=== PATIENT | female | born 2000 | race African-American/Black ===

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

== ENCOUNTER 2018-03-17 17:17 | Emergency (ER) | payer MEDICAID ==
[2018-03-17 17:56] LABS: APPEARANCE,URINE CLEAR; BILIRUBIN,URINE NEGATIVE (NEGATIVE); COLOR,URINE YELLOW; GLUCOSE, URINE NEGATIVE (NEGATIVE); KETONES,URINE NEGATIVE (NEGATIVE); LEUKOCYTE ESTERASE,URINE NEGATIVE (NEGATIVE); NITRITE,URINE NEGATIVE (NEGATIVE); PROTEIN,URINE NEGATIVE (NEGATIVE); URINE SPECIFIC GRAVITY 1.014; UROBILINOGEN,URINE NEGATIVE mg/dL (<2.0)
--- NOTE | 2018-03-17 20:23 | RADIOLOGY REPORT (SQ) ---
EXAM DESCRIPTION: U/S OB TRANSVAGINAL W/O DOP COMPLETED DATE/TIME: 03/17/2018 8:07 pm REASON FOR STUDY: 8 weeks , bleeding COMPARISON: None. TECHNIQUE: Transvaginal static and realtime grayscale images acquired of the pelvis. Additional benjamín cted spectral and color Doppler images recorded. All images stored on PACs. bHCG: Not available. CLINICAL DATES: LMP 01/21/2018. 7 weeks 6 days. LIMITATIONS: None. FINDINGS: FETUS: Living intrauterine . ULTRASOUND EGA: 5 weeks 6 days ULTRASOUND SHERRILL: 11/11/2018 CRL: 3 mm FHR: 125 beats per minute. SUBCHORIONIC BLEED: Yes SIZE OF BLEED: Small UTERUS: No masses or anomalies. 7.3 x 3.5 x 4.5 cm. CERVICAL LENGTH: 3.7 cm. Closed. RIGHT ADNEXA: Normal ovary with normal vascular flow. 3.1 x 1.7 x 1.8 cm No adnexal free fluid. No adnexal masses. LEFT ADNEXA: Normal ovary with normal vascular flow. 3.1 x 1.3 x 1.2 cm No adnexal free fluid. No adnexal masses. FREE FLUID: Small amount of free fluid in the posterior cul-de-sac. OTHER: No other significant finding. IMPRESSION: LIVING INTRAUTERINE . EGA 5 weeks 6 days. Small subchorionic bleed. Follow-up as clinically indicated. Trimester of : First - 0 to 13 weeks. TECHNICAL DOCUMENTATION: JOB ID: [id number] [employer]- All Rights Reserved rev-01/22 Reading location - IP/workstation name: [email or web address]
--- NOTE | 2018-03-17 22:12 | ER Document Report ---
ED General - General Chief Complaint: Vag Bleeding, +preg <12wks Stated Complaint: VAGINAL BLEEDING Time Seen by Provider: 03/17/18 18:30 TRAVEL OUTSIDE OF THE [place] IN LAST 30 DAYS: No - HPI Patient complains to provider of: Vaginal bleeding positive Notes: Patient is a coming in for vaginal bleeding. Patient states to have sexual intercourse approximately 3 days ago. Patient otherwise denies anything inside the vaginal vault denies any trauma or strenuous activity. Patient states some slight cramping with dark brown blood. Patient says she has not been taking any vitamins and otherwise did see room is healthcare just for confirmation of with test. Patient denies any other medical issues resting company upon my evaluation. - Related Data Allergies/Adverse Reactions: No Known Allergies Allergy (Verified 04/08/17 14:14) Past Medical History - Social History Smoking Status: Never Smoker Chew tobacco use (# tins/day): No Frequency of alcohol use: None Drug Abuse: None Family History: Reviewed & Not Pertinent Patient has suicidal ideation: No Patient has homicidal ideation: No - Past Medical History Cardiac Medical History: Denies: Hx Coronary Artery Disease, Hx Heart Attack, Hx Hypertension Pulmonary Medical History: Denies: Hx Asthma, Hx Bronchitis, Hx COPD, Hx Pneumonia Neurological Medical History: Denies: Hx Cerebrovascular Accident, Hx Seizures Renal/ Medical History: Denies: Hx Peritoneal Dialysis Musculoskeltal Medical History: Denies Hx Arthritis Past Surgical History: Denies: Hx Hysterectomy - Immunizations Immunizations up to date: Yes Hx Diphtheria, Pertussis, Tetanus Vaccination: Yes Review of Systems - Review of Systems Constitutional: No symptoms reported EENT: No symptoms reported Cardiovascular: No symptoms reported Respiratory: No symptoms reported Gastrointestinal: No symptoms reported Genitourinary: No symptoms reported Female Genitourinary: Vaginal bleeding Musculoskeletal: No symptoms reported Skin: No symptoms reported Hematologic/Lymphatic: No symptoms reported Neurological/Psychological: No symptoms reported -: Yes All other systems reviewed and negative Physical Exam - Vital signs Vitals: Temp Pulse Resp BP Pulse Ox 97.8 F 76 18 109/63 100 03/17/18 17:32 03/17/18 17:32 03/17/18 17:32 03/17/18 17:32 03/17/18 17:32 Interpretation: Normal - General General appearance: Appears well, Alert - HEENT Head: Normocephalic, Atraumatic Eyes: Normal Pupils: PERRL - Respiratory Respiratory status: No respiratory distress Chest status: Nontender Breath sounds: Normal Chest palpation: Normal - Cardiovascular Rhythm: Regular Heart sounds: Normal auscultation Murmur: No - Abdominal Inspection: Normal Distension: No distension Bowel sounds: Normal Tenderness: Nontender Organomegaly: No organomegaly - Back Back: Normal, Nontender - Extremities General upper extremity: Normal inspection, Nontender, Normal color, Normal ROM , Normal temperature General lower extremity: Normal inspection, Nontender, Normal color, Normal ROM , Normal temperature, Normal weight bearing. No: Ketan's sign - Neurological Neuro grossly intact: Yes Cognition: Normal Orientation: AAOx4 [place] Coma Scale Eye Opening: Spontaneous Jonelle Coma Scale Verbal: Oriented Jonelle Coma Scale Motor: Obeys Commands Jonelle Coma Scale Total: 15 Speech: Normal Motor strength normal: LUE, RUE, LLE, RLE Sensory: Normal - Psychological Associated symptoms: Normal affect, Normal mood - Skin Skin Temperature: Warm Skin Moisture: Dry Skin Color: Normal Course - Re-evaluation Re-evalutation: 03/18/18 00:50 Patient's beta-hCG was around 11,000 with a ultrasound showing IUP is some mild subchorionic bleed. Long discussion with patient at bedside she would have an increased risk of having a miscarriage however she is follow-up for repeat beta hCG testing the next 4872 hours. Patient was given a lab slip to return here to the ER for outpatient laboratory testing or recommend follow-up moves all care clinic. After I placed patient's papers of her discharge was called back to the ramus patient was having some slight cramping. Did perform a bedside ultrasound showing IUP still in the correct position. I do further answer more questions of the patient had follow-up. Explained to patient that still a good chance patient may be having a miscarriage in this time with her the gestation at 5 weeks that there will be no measures taken to keep the gestation viable. I did leave the room and later again was notified by nursing staff the patient had vaginal bleeding while she is try to get dressed with a large amount of blood on the floor with a large clot. Patient was requesting my presence again. I did remain in the room there was paper towels in the floor with blood stain patient states that there was a large clot within the blood asked if I want to look at the blood clot explained to patient that even at a 5 week gestation patient still had a microscopic organism is likely looking of the clot would not be able to tell there is any tissue or not reeducated the patient that still at this time there be no further measures to be taken to keep the viable that she will either continue to have a normal healthy or that she may miscarriage and no further measures could be taken except for rest and to repeat her beta-hCG levels and 40-72 hours. Patient states understanding was given nausea medication and information about nausea medication for home. - Vital Signs Vital signs: Temp Pulse Resp BP Pulse Ox 98.7 F 79 14 102/55 L 99 03/17/18 23:33 03/17/18 23:33 03/17/18 23:33 03/17/18 23:33 03/17/18 23:33 - Laboratory Laboratory results interpreted by me: 03/17/18 03/17/18 17:25 20:27 Beta HCG, Quant 15850.00 H Urine Blood LARGE H Discharge - Discharge Clinical Impression: Vaginal bleeding before 22 weeks gestation Condition: Good Disposition: HOME, SELF-CARE Instructions: Bleeding During Early ([facility]) Additional Instructions: I recommend following up with ADDICTION THERAPIST in the next 3-5 days. You will need to have your beta hCG levels retested in the next 48-72 hours. He can follow-up with your ADDICTION THERAPIST for this or use the lab slip to return to outpatient laboratory to have this performed. After having a blood drawn you can call the ER number for your results to 3 hours after having her blood drawn. Return to the ER for any other concerns. Take vitamins as prescribed Take nausea medication as prescribed You have been seen for vomiting during . You should continue to drink plenty of water and consider taking a solution such as Pedialyte if your having difficulty eating food. Please return if you become unable to drink any fluids for more than 12 hours, urinate less than twice a day, pass out, or have any other symptoms that are concerning to you. For nausea and vomiting during I recomment: Start with 10-12.5 mg of pyridoxine (vitamin B6) three times a day for 2 days. If not fully effective, Increase to 12.5 mg of pyridoxine four times a day for 2 days. If not fully effective, Increase to 25 mg of pyridoxine three times a day for 2 days. If not fully effective, Continue 25 mg pyridoxine 3 times a day, and add 12.5 mg of doxylamine before bedtime each day for 2 days. If not fully effective, Continue 25 mg pyridoxine 3 times a day, and take 12.5 mg of doxylamine twice a day. If not fully effective, Continue 25 mg pyridoxine 3 times a day, and take 12.5 mg of doxylamine three times a day. If not fully effective, Continue 25 mg pyridoxine 3 times a day, and 12.5 mg of doxylamine 3 times a day , while adding Emetrol, one to two tablespoons (15-30 cc) taken once or twice a day as needed. (Emetrol is an fbra-akd-wmasdjd mixture of sugar syrups and phosphoric acid [phosphorylated carbohydrate solution]) that acts by soothing the actual wall of the gastrointestinal tract). If not fully effective, Consult with your doctor. Prescriptions: Metoclopramide HCl [Reglan] 5 mg PO Q6 #30 tablet Prenat 115/Iron Fum/Folic/Dss [ 19 Tablet] 1 each PO DAILY #30 tablet Forms: Return to Work, Follow-Up Outpatient Testing Referrals: ARUN GARCIA MD [Primary Care Provider] - Follow up in 3-5 days
[2018-03-18 00:37] VITALS: BP 102/55
== END 2018-03-17 23:40 | disposition home or self-care (01) ==
LOC: ER 17:17
DX: O20.9 Hemorrhage in early pregnancy, unspecified (principal); Z3A.01 Less than 8 weeks gestation of pregnancy
CPT/HCPCS: 36415; 76817; 81001; 84702; 86900; 86901; 99284

== ENCOUNTER 2018-04-26 07:20 | Emergency (ER) | payer MEDICAID ==
--- NOTE | 2018-04-26 09:23 | ER Document Report ---
ED Medical Screen (RME) - General Mode of Arrival: Ambulatory Information source: Patient TRAVEL OUTSIDE OF THE [place] IN LAST 30 DAYS: No <GUICHO FRANCOIS - Last Filed: 04/26/18 09:21> <JAILENE RAMIREZ - Last Filed: 04/26/18 13:03> - General Chief Complaint: Abdominal Pain Stated Complaint: ABDOMINAL PAIN Time Seen by Provider: 04/26/18 09:19 Notes: This is a 18-year-old female with a history of GERD who presents to the emergency room with sharp pain in the suprapubic region. Patient states that the pain started yesterday. There is been no exacerbating or relieving factors. She denies vaginal discharge. She denies dysuria. Her last normal menstrual period was 1 week ago. She does state she has "hot flashes". There is no back pain or flank pain. There is no vomiting but that she does have nausea. Her obstetric history is 1 para 0 with a history of a miscarriage in the early first trimester. (GUICHO FRANCOIS) - Related Data Allergies/Adverse Reactions: No Known Allergies Allergy (Verified 04/26/18 09:18) Past Medical History - Social History Chew tobacco use (# tins/day): No Frequency of alcohol use: None Drug Abuse: None - Past Medical History Cardiac Medical History: Denies: Hx Coronary Artery Disease, Hx Heart Attack, Hx Hypertension Pulmonary Medical History: Denies: Hx Asthma, Hx Bronchitis, Hx COPD, Hx Pneumonia Neurological Medical History: Denies: Hx Cerebrovascular Accident, Hx Seizures Renal/ Medical History: Denies: Hx Peritoneal Dialysis GI Medical History: Reports: Hx Gastroesophageal Reflux Disease Musculoskeltal Medical History: Denies Hx Arthritis Past Surgical History: Denies: Hx Hysterectomy - Immunizations Immunizations up to date: Yes Hx Diphtheria, Pertussis, Tetanus Vaccination: Yes <GUICHO FRANCOIS - Last Filed: 04/26/18 09:21> - Vital signs Vitals: Temp Pulse Resp BP Pulse Ox 98.6 F 74 14 114/68 100 04/26/18 07:27 04/26/18 07:27 04/26/18 07:27 04/26/18 07:27 04/26/18 07:27 Course - Laboratory Result Diagrams: 04/26/18 08:50 04/26/18 08:50 <JAILENE RAMIREZ - Last Filed: 04/26/18 13:03> - Vital Signs Vital signs: Temp Pulse Resp BP Pulse Ox 98.6 F 74 14 114/68 100 04/26/18 07:27 04/26/18 07:27 04/26/18 07:27 04/26/18 07:27 04/26/18 07:27 - Laboratory Laboratory results interpreted by me: 04/26/18 04/26/18 08:50 08:50 Total Bilirubin 1.5 H AST 44 H Total Protein 8.5 H Ur Leukocyte Esterase TRACE H Doctor's Discharge <GUICHO FRANCOIS - Last Filed: 04/26/18 09:21> <JAILENE RAMIREZ - Last Filed: 04/26/18 13:03> - Discharge Clinical Impression: Abdominal pain Qualifiers: Abdominal location: unspecified location Qualified Code(s): R10.9 - Unspecified abdominal pain Condition: Good Disposition: HOME, SELF-CARE Instructions: Abdominal Pain ([facility]), Bulk Laxatives Prescriptions: Polyethylene Glycol 3350 [Miralax Powder 17 gm/Packet] 1 packet PO BID 7 Days # 1 pkg Referrals: ARUN GARCIA MD [ACTIVE STAFF] - Follow up as needed
[2018-04-26 09:29] LABS: ABSOLUTE BASOPHILS # (AUTO) 0.1 10^3/uL (0.0-0.2); ABSOLUTE EOSINOPHILS # (AUTO) 0.1 10^3/uL (0.0-0.6); ABSOLUTE LYMPHOCYTES (AUTO) 1.8 10^3/uL (0.5-4.7); ABSOLUTE MONOCYTES (AUTO) 0.4 10^3/uL (0.1-1.4); ABSOLUTE NEUT (AUTO) 2.4 10^3/uL (1.7-8.2); BASOPHILS % (AUTO) 1.2 % (0-2); HEMATOCRIT 44.4 % (36.0-47.0); HEMOGLOBIN 15.5 g/dL (12.0-15.5); LYMPHOCYTES % (AUTO) 38.3 % (13-45); MEAN CORPUSCULAR HEMOGLOBIN 33.2 pg (27.0-33.4); MEAN CORPUSCULAR HGB CONC 34.9 g/dL (32.0-36.0); MEAN CORPUSCULAR VOLUME 95 fl (80-97); MONOCYTES % (AUTO) 7.5 % (3-13); PLATELET COUNT 197 10^3/uL (150-450); RED BLOOD COUNT 4.66 10^6/uL (3.72-5.28); RED CELL DISTRIBUTION WIDTH 12.7 % (11.5-14.0); TOTAL CELLS COUNTED % (AUTO) 100 %; WHITE BLOOD COUNT 4.8 10^3/uL (4.0-10.5)
[2018-04-26 09:33] LABS: ALANINE AMINOTRANSFERASE 43 U/L (9-52); ALBUMIN 4.7 g/dL (3.5-5.0); ALKALINE PHOSPHATASE 58 U/L (38-126); ANION GAP 14 (5-19); ASPARTATE AMINO TRANSFERASE 44 U/L (14-36); BILIRUBIN,DIRECT 0.4 mg/dL (0.0-0.4); BILIRUBIN,TOTAL 1.5 mg/dL (0.2-1.3); BLOOD UREA NITROGEN 12 mg/dL (7-20); CALCIUM 9.7 mg/dL (8.4-10.2); CARBON DIOXIDE 26 mmol/L (22-30); CHLORIDE 104 mmol/L (98-107); GLUCOSE 97 mg/dL (75-110); LIPASE 52.6 U/L (23-300); POTASSIUM 4.2 mmol/L (3.6-5.0); SODIUM 143.6 mmol/L (137-145); TOTAL PROTEIN 8.5 g/dL (6.3-8.2)
[2018-04-26 10:06] LABS: APPEARANCE,URINE SLIGHTLY-CLOUDY; BILIRUBIN,URINE NEGATIVE (NEGATIVE); COLOR,URINE YELLOW; GLUCOSE, URINE NEGATIVE (NEGATIVE); KETONES,URINE NEGATIVE (NEGATIVE); LEUKOCYTE ESTERASE,URINE TRACE (NEGATIVE); NITRITE,URINE NEGATIVE (NEGATIVE); PROTEIN,URINE NEGATIVE (NEGATIVE); URINE SPECIFIC GRAVITY 1.011; UROBILINOGEN,URINE NEGATIVE mg/dL (<2.0)
--- NOTE | 2018-04-26 12:19 | RADIOLOGY REPORT (SQ) ---
EXAM DESCRIPTION: U/S NON OB PEL TV W/DOPPLER COMPLETED DATE/TIME: 04/26/2018 11:41 am REASON FOR STUDY: pain in pelvis LMP 04/17/2018 COMPARISON: None. TECHNIQUE: Dynamic and static grayscale images acquired of the pelvis via transvaginal approach and recorded on PACS. Additional selected color Doppler and spectral images recorded. LIMITATIONS: None. FINDINGS: UTERUS: Contour normal. No mass. ENDOMETRIAL STRIPE: No focal or generalized thickening. No masses. CERVIX: No nabothian cysts. RIGHT OVARY AND DOPPLER: Normal size. No worrisome masses. Normal arterial vascular flow without evid ence for torsion. LEFT OVARY AND DOPPLER: Normal size. No worrisome masses. Normal arterial vascular flow without evide nce for torsion. FREE FLUID: None noted. OTHER: No other significant finding. MEASUREMENTS: UTERUS: 6.7 x 4 x 3.1 cm. ENDOMETRIAL STRIPE: 8 mm. RIGHT OVARY: 2.4 x 2 x 1.5 cm. LEFT OVARY: 2.8 x 1.6 x 1.8 cm. IMPRESSION: NORMAL TRANSVAGINAL PELVIC ULTRASOUND. TECHNICAL DOCUMENTATION: JOB ID: [id number] [employer]- All Rights Reserved Rev-01/22 Reading location - IP/workstation name: [email or web address]
--- NOTE | 2018-04-26 13:09 | ER Document Report ---
ED GI/ - General Chief Complaint: Abdominal Pain Stated Complaint: ABDOMINAL PAIN Time Seen by Provider: 04/26/18 09:19 Mode of Arrival: Ambulatory Information source: Patient TRAVEL OUTSIDE OF THE [place] IN LAST 30 DAYS: No - HPI Patient complains to provider of: Other - 18-year-old female presents for evaluation of lower cramping abdominal pain which began today, she notes that she had a faint sense of it yesterday after eating some ribs today seem to be a little bit worse, she denies any nausea diarrhea or dysuria associated with this she does note that she has not had a bowel movement since yesterday and has had some issues with constipation in the past. She denies any pelvic pain or pelvic discharge, recent change in sexual partners, she denies any past surgical history, she denies any other complaints. She has never had anything like this in the past, nothing to make it any better not has made any worse. - Related Data Allergies/Adverse Reactions: No Known Allergies Allergy (Verified 04/26/18 09:18) Past Medical History - General Information source: Patient - Social History Smoking Status: Never Smoker Chew tobacco use (# tins/day): No Frequency of alcohol use: None Drug Abuse: None Family History: Reviewed & Not Pertinent Patient has suicidal ideation: No Patient has homicidal ideation: No - Past Medical History Cardiac Medical History: Denies: Hx Coronary Artery Disease, Hx Heart Attack, Hx Hypertension Pulmonary Medical History: Denies: Hx Asthma, Hx Bronchitis, Hx COPD, Hx Pneumonia Neurological Medical History: Denies: Hx Cerebrovascular Accident, Hx Seizures Renal/ Medical History: Denies: Hx Peritoneal Dialysis GI Medical History: Reports: Hx Gastroesophageal Reflux Disease Musculoskeletal Medical History: Denies Hx Arthritis Past Surgical History: Denies: Hx Hysterectomy - Immunizations Immunizations up to date: Yes Hx Diphtheria, Pertussis, Tetanus Vaccination: Yes Review of Systems - Review of Systems -: Yes All other systems reviewed and negative Physical Exam - Vital signs Vitals: Temp Pulse Resp BP Pulse Ox 98.6 F 74 14 114/68 100 04/26/18 07:27 04/26/18 07:27 04/26/18 07:27 04/26/18 07:27 04/26/18 07:27 - General General appearance: Appears well In distress: None - HEENT Head: Normocephalic Eyes: Normal Conjunctiva: Normal Cornea: Normal - Respiratory Respiratory status: No respiratory distress Chest status: Nontender Breath sounds: Normal Chest palpation: Normal - Cardiovascular Rhythm: Regular Heart sounds: Normal auscultation Murmur: No - Abdominal Inspection: Normal Distension: No distension Tenderness: Tender - Diffuse tenderness in the lower aspect of the abdomen without any appreciable rebound or guarding Organomegaly: No organomegaly - Back Back: Normal - Extremities General upper extremity: Normal inspection General lower extremity: Normal inspection - Neurological Neuro grossly intact: Yes Cognition: Normal Orientation: AAOx4 - Psychological Associated symptoms: Normal affect Course - Re-evaluation Re-evalutation: 04/26/18 18:50 This 18-year-old female presents for evaluation of vague lower abdominal pain in the setting of having eaten recently, she denies any other symptoms. On examination she is remarkably well-appearing in no obvious distress, through triage she had labs ordered as well as urinalysis. She has had vague abdominal pains in the past but never exactly like this which have been attributed previously to constipation. her abdominal exam is reassuring and benign but because of the concern for possible pelvic etiology will obtain pelvic ultrasound. Pelvic ultrasound does not demonstrate any obvious abnormality, urinalysis reassuring CBC and BMP are unremarkable. Believe this patient safe for discharge at this time as her abdominal examination remains benign. We will plan for discharge after p.o. challenge, able tolerate p.o., patient discharged encouraged to follow-up as previous schedule. - Vital Signs Vital signs: Temp Pulse Resp BP Pulse Ox 98.5 F 66 16 107/64 97 04/26/18 13:41 04/26/18 13:41 04/26/18 13:41 04/26/18 13:41 04/26/18 13:41 - Laboratory Result Diagrams: 04/26/18 08:50 04/26/18 08:50 Laboratory results interpreted by me: 04/26/18 04/26/18 08:50 08:50 Total Bilirubin 1.5 H AST 44 H Total Protein 8.5 H Ur Leukocyte Esterase TRACE H Discharge - Discharge Clinical Impression: Abdominal pain Qualifiers: Abdominal location: unspecified location Qualified Code(s): R10.9 - Unspecified abdominal pain Condition: Good Disposition: HOME, SELF-CARE Instructions: Abdominal Pain ([facility]), Bulk Laxatives Prescriptions: Polyethylene Glycol 3350 [Miralax Powder 17 gm/Packet] 1 packet PO BID 7 Days # 1 pkg Referrals: ARUN GARCIA MD [ACTIVE STAFF] - Follow up as needed
[2018-04-26 13:43] VITALS: BP 107/64
== END 2018-04-26 13:43 | disposition home or self-care (01) ==
LOC: ER 07:20
DX: R10.30 Lower abdominal pain, unspecified (principal); Z87.19 Personal history of other diseases of the digestive system
CPT/HCPCS: 36415; 76830; 80053; 81001; 81025; 83690; 85025; 93976; 99284

== ENCOUNTER → 2018-05-05 | Outpatient (CLI) | payer MEDICAID ==
[2018-05-05 17:54] LABS: BACTERIA (WET MOUNT) 3+ BACTERIA SEEN; EPITHELIALS (WET MOUNT) 3+ EPITHELIALS SEEN; RBCS (WET MOUNT) RARE RBCS SEEN; T.VAGINALIS (WET MOUNT) NO TRICHOMONAS SEEN; WBCS (WET MOUNT) 3+ WBCS SEEN; YEAST (WET MOUNT) NO YEAST SEEN
[2018-05-05 19:28] LABS: CHLAM PCR NOT DETECTED (NOT DETECT); GON PCR NOT DETECTED (NOT DETECT)
== END ==
LOC: LAB 17:35
PROVIDERS: ATTEND Nurse Practitioner Family
DX: N89.8 Other specified noninflammatory disorders of vagina (principal); R30.0 Dysuria
CPT/HCPCS: 87086; 87210; 87491; 87591

== ENCOUNTER → 2018-06-09 | Outpatient (CLI) | payer MEDICAID | LOC: LAB 11:14 | PROVIDERS: ATTEND Nurse Practitioner Acute Care | DX: M54.5 Low back pain (principal) | CPT/HCPCS: 87086 ==

== ENCOUNTER 2018-07-14 16:02 | Emergency (ER) | payer MEDICAID ==
[2018-07-14 16:10] VITALS: BP 104/69
--- NOTE | 2018-07-14 16:34 | ER Document Report ---
ED General - General Chief Complaint: Vomiting Stated Complaint: SORE THROAT,VOMITING Time Seen by Provider: 07/14/18 16:23 Mode of Arrival: Ambulatory Information source: Patient Notes: Chief complaint: Sore throat History of complain:( obtained from----patient) 18 years old female who is 18 weeks presents today with tickle in the throat and pain in the throat as well as coughing and vomited couple of times. Has been nauseous since being . No abdominal pain. No fever chills or other constitutional symptoms Onset: As above Duration: Gradual Severity: Mild Quality: Pain Context: Possible infection Exacerbating factor and relieving factors: Talking REVIEW OF SYSTEMS: CONSTITUTIONAL : Denies fever, chills, or sweats. Denies recent illness. EENT: Denies eye, ear, throat, or mouth pain or symptoms. Denies nasal or sinus congestion or discharge. Denies throat, tongue, or mouth swelling or difficulty swallowing. CARDIOVASCULAR: Denies chest pain. Denies palpitations or racing or irregular heart beat. Denies ankle edema. RESPIRATORY: Denies cough, cold, or chest congestion. Denies shortness of breath, difficulty breathing, or wheezing. GASTROINTESTINAL: Denies distention. Denies nausea, vomiting, or diarrhea. Denies blood in vomitus, stools, or per rectum. Denies black, tarry stools. Denies constipation. GENITOURINARY: Denies difficulty urinating, painful urination, burning, frequency, blood in urine, or discharge. FEMALE GENITOURINARY: Denies vaginal bleeding, heavy or abnormal periods, irregular periods. Denies vaginal discharge or odor. MUSCULOSKELETAL: Denies back or neck pain or stiffness. Denies joint pain or swelling. SKIN: Denies rash, lesions or sores. HEMATOLOGIC : Denies easy bruising or bleeding. LYMPHATIC: Denies swollen, enlarged glands. NEUROLOGICAL: Denies confusion or altered mental status. Denies passing out or loss of consciousness. Denies dizziness or lightheadedness. Denies headache. Denies weakness or paralysis or loss of use of either side. Denies problems with gait or speech. Denies sensory loss, numbness, or tingling. Denies seizures. PSYCHIATRIC: Denies anxiety or stress. Denies depression, suicidal ideation, or homicidal ideation. ALL OTHER SYSTEMS REVIEWED AND NEGATIVE. PHYSICAL EXAMINATION: GENERAL: Well-appearing, well-nourished and in no acute distress. HEAD: Atraumatic, normocephalic. EYES: Pupils equal round and reactive to light, extraocular movements intact, conjunctiva are normal. ENT: Nares patent, oropharynx is erythematous without exudates. Moist mucous membranes. NECK: Normal range of motion, supple without lymphadenopathy LUNGS: Breath sounds clear to auscultation bilaterally and equal. No wheezes rales or rhonchi. HEART: Regular rate and rhythm without murmurs ABDOMEN: Soft, nontender, nondistended abdomen. No guarding, no rebound. No masses appreciated. Examination of genitals-deferred Musculoskeletal: Normal range of motion, no pitting or edema. No cyanosis. NEUROLOGICAL: Cranial nerves grossly intact. Normal speech, normal gait. Normal sensory, motor exams PSYCH: Normal mood, normal affect. SKIN: Warm, Dry, normal turgor, no rashes or lesions noted. Dictation was performed using [employer] voice recognition software TRAVEL OUTSIDE OF THE [place] IN LAST 30 DAYS: No - HPI Notes: Dictated - Related Data Allergies/Adverse Reactions: No Known Allergies Allergy (Verified 07/14/18 16:03) Past Medical History - Social History Smoking Status: Never Smoker Frequency of alcohol use: None Drug Abuse: None Family History: Reviewed & Not Pertinent Patient has suicidal ideation: No Patient has homicidal ideation: No - Past Medical History Cardiac Medical History: Denies: Hx Coronary Artery Disease, Hx Heart Attack, Hx Hypertension Pulmonary Medical History: Denies: Hx Asthma, Hx Bronchitis, Hx COPD, Hx Pneumonia Neurological Medical History: Denies: Hx Cerebrovascular Accident, Hx Seizures Renal/ Medical History: Denies: Hx Peritoneal Dialysis GI Medical History: Reports: Hx Gastroesophageal Reflux Disease Musculoskeletal Medical History: Denies Hx Arthritis Past Surgical History: Denies: Hx Hysterectomy - Immunizations Immunizations up to date: Yes Hx Diphtheria, Pertussis, Tetanus Vaccination: Yes Review of Systems - Review of Systems Notes: Dictated Physical Exam - Vital signs Vitals: Temp Pulse Resp BP Pulse Ox 98.6 F 86 18 104/69 99 07/14/18 16:10 07/14/18 16:10 07/14/18 16:10 07/14/18 16:10 07/14/18 16:10 - Notes Notes: Dictated Course - Vital Signs Vital signs: Temp Pulse Resp BP Pulse Ox 98.6 F 86 18 104/69 99 07/14/18 16:10 07/14/18 16:10 07/14/18 16:10 07/14/18 16:10 07/14/18 16:10 Discharge - Discharge Clinical Impression: Sore throat and laryngitis, Nausea Qualifiers: Weeks of gestation: less than 8 weeks Qualified Code(s): Z3A.01 - Less than 8 weeks gestation of Condition: Fair Disposition: HOME, SELF-CARE Instructions: Sore Throat ([facility]), ([facility]), Nausea or Vomiting, Nonspecific ([facility]) Prescriptions: Ondansetron [Zofran Odt 4 mg Tablet] 1 - 2 tab PO Q4HP PRN #10 tab.rapdis PRN Reason: Amoxicillin 1 tab PO TID #30 tab Referrals: KIRK EDMOND, [employer]PERVISOR [Primary Care Provider] - Follow up as needed
== END 2018-07-14 17:20 | disposition home or self-care (01) ==
LOC: ER 16:02
DX: O99.511 Diseases of the respiratory system complicating pregnancy, first trimester (principal); J02.9 Acute pharyngitis, unspecified; J04.0 Acute laryngitis; O21.9 Vomiting of pregnancy, unspecified; O26.891 Other specified pregnancy related conditions, first trimester; R05 Cough; Z3A.01 Less than 8 weeks gestation of pregnancy
CPT/HCPCS: 87070; 87880; 99284

== ENCOUNTER 2018-11-13 17:09 | Emergency (ER) | payer MEDICAID ==
--- NOTE | 2018-11-13 18:09 | ER Document Report ---
ED Medical Screen (RME) - General Chief Complaint: Cold Symptoms Stated Complaint: FLU SYMPTOMS Time Seen by Provider: 11/13/18 18:03 Primary Care Provider: YAMILKA VINES MD [Primary Care Provider] - Follow up as needed Mode of Arrival: Ambulatory Information source: Patient Notes: Pt is a 18 year old female 29 weeks , with runny nose, itchy throat and headache, chills and lower abdominal pains bilaterally and a burning sensation, denies burning with urination, vaginal bleeding. TRAVEL OUTSIDE OF THE [place] IN LAST 30 DAYS: No - Related Data Allergies/Adverse Reactions: No Known Allergies Allergy (Verified 07/14/18 16:03) Past Medical History - General Information source: Patient - Past Medical History Cardiac Medical History: Denies: Hx Coronary Artery Disease, Hx Heart Attack, Hx Hypertension Pulmonary Medical History: Denies: Hx Asthma, Hx Bronchitis, Hx COPD, Hx Pneumonia Neurological Medical History: Denies: Hx Cerebrovascular Accident, Hx Seizures Renal/ Medical History: Denies: Hx Peritoneal Dialysis GI Medical History: Reports: Hx Gastroesophageal Reflux Disease Musculoskeltal Medical History: Denies Hx Arthritis Past Surgical History: Denies: Hx Hysterectomy - Immunizations Immunizations up to date: Yes Hx Diphtheria, Pertussis, Tetanus Vaccination: Yes Review of Systems - Review of Systems EENT: See HPI Genitourinary: See HPI Physical Exam - Vital signs Vitals: Temp Pulse Resp BP Pulse Ox 99.7 F 119 H 16 105/65 100 11/13/18 17:18 11/13/18 17:18 11/13/18 17:18 11/13/18 17:18 11/13/18 17:18 - Notes Notes: general: nad ENT: mildly erythematous oropharynx, no tonsilar enlargement, no exudate, airway patent Course - Vital Signs Vital signs: Temp Pulse Resp BP Pulse Ox 99.7 F 119 H 16 105/65 100 11/13/18 17:18 11/13/18 17:18 11/13/18 17:18 11/13/18 17:18 11/13/18 17:18 Doctor's Discharge - Discharge Referrals: YAMILKA VINES MD [Primary Care Provider] - Follow up as needed
[2018-11-13 18:23] LABS: APPEARANCE,URINE SLIGHTLY-CLOUDY; BILIRUBIN,URINE NEGATIVE (NEGATIVE); COLOR,URINE YELLOW; GLUCOSE, URINE NEGATIVE (NEGATIVE); KETONES,URINE 80 mg/dL (NEGATIVE); LEUKOCYTE ESTERASE,URINE TRACE (NEGATIVE); NITRITE,URINE NEGATIVE (NEGATIVE); PROTEIN,URINE NEGATIVE (NEGATIVE); URINE SPECIFIC GRAVITY 1.009; UROBILINOGEN,URINE NEGATIVE mg/dL (<2.0)
[2018-11-13 18:49] LABS: A TYPE INFLUENZA AG NEGATIVE (NEGATIVE); B INFLUENZA AG NEGATIVE (NEGATIVE)
[2018-11-13] MEDS ORDERED: ACETAMINOPHEN 325 MG TABLET PO ONE (19:09)
[2018-11-13] MEDS ORDERED: NORMAL SALINE 1000 ML 1,000 ML IV ONE (19:09)
--- NOTE | 2018-11-13 19:10 | ER Document Report ---
HPI - HPI Time Seen by Provider: 11/13/18 18:03 Onset: Yesterday Onset/Duration: Gradual Quality of pain: Achy Pain Level: 3 Context: Patient presents complaining of cold symptoms including headache, body aches sore throat and congestion. Patient states sore throat symptoms started yesterday. Patient reports mild cough that started today. Patient is 29 weeks . Patient does report lower pelvic cramping for the past 3-4 days. Patient states she did see her DIGITAL PRODUCT MANAGER for the pelvic pain and they felt that this was related to the enlarging . Patient denies any urinary symptoms, vaginal bleeding or discharge. Associated Symptoms: Nonproductive cough, Rhinnorhea, Sore throat. denies: Chest pain, Fever, Nausea Exacerbated by: Denies Relieved by: Denies Similar symptoms previously: Yes - Pelvic pain Recently seen / treated by doctor: Yes - ROS ROS below otherwise negative: Yes Systems Reviewed and Negative: Yes All other systems reviewed and negative - CONSTITUTIONAL Constitutional: REPORTS: Chills - EENT EENT: REPORTS: Sore Throat, Congestion - NEURO Neurology: REPORTS: Headache - CARDIOVASCULAR Cardiovascular: DENIES: Chest pain - RESPIRATORY Respiratory: REPORTS: Coughing. DENIES: Trouble Breathing - GASTROINTESTINAL Gastrointestinal: REPORTS: Abdominal Pain. 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 Lives with: Spouse/Significant other Family History: Reviewed & Not Pertinent Patient has suicidal ideation: No Patient has homicidal ideation: No Renal/ Medical History: Denies: Hx Peritoneal Dialysis GI Medical History: Reports: Hx Gastroesophageal Reflux Disease Musculoskeletal Medical History: Denies Hx Arthritis Surgical Hx: Negative - Immunizations Immunizations up to date: Yes Hx Diphtheria, Pertussis, Tetanus Vaccination: Yes Vertical Provider Document - CONSTITUTIONAL Agree With Documented VS: Yes Exam Limitations: No Limitations General Appearance: WD/WN, No Apparent Distress - INFECTION CONTROL TRAVEL OUTSIDE OF THE [place] IN LAST 30 DAYS: No - HEENT HEENT: Atraumatic, Normocephalic, Pharyngeal Tenderness, Pharyngeal Erythema. negative: Pharyngeal Exudate, Tympanic Membrane Red, Tympanic Membrane Bulging - NECK Neck: Normal Inspection, Supple. negative: Lymphadenopathy-Left, Lymphadenopathy-Right - RESPIRATORY Respiratory: Breath Sounds Normal, No Respiratory Distress, Chest Non-Tender - CARDIOVASCULAR Cardiovascular: Regular Rhythm, No Murmur, Tachycardia - GI/ABDOMEN Gastrointestinal: Abdomen Soft, Abdomen Tender - Lower pelvic tenderness, No Organomegaly, Normal Bowel Sounds - BACK Back: Normal Inspection. negative: CVA Tenderness-Right, CVA Tenderness-Left - MUSCULOSKELETAL/EXTREMETIES Musculoskeletal/Extremeties: MAEW, FROM, Non-Tender - NEURO Level of Consciousness: Awake, Alert, Appropriate Motor/Sensory: No Motor Deficit - DERM Integumentary: Warm, Dry, No Rash Course - Re-evaluation Re-evalutation: 11/13/18 20:50 IV fluids infusing. Patient states she is feeling better. Patient denies any abdominal tenderness. Patient with some leukocyte esterase noted on urinalysis. Culture is pending. Will cover with antibiotics for short course at this time. Patient educated on importance of staying hydrated. 11/13/18 20:[address] Washington who is on-call for D[employer]NAGER services to determine whether or not she felt patient was still need to go for labor check as patient does not presently have any kind of lower pelvic pain symptoms. States that we can offer patient a labor check but that she does not have to have that. Does advised that if patient goes home and she has any return of her pelvic pain symptoms that she should return for a labor check. Spoke with patient and gave her the option to be discharged from the ER without a labor check or if she would like to go upstairs for labor check and patient prefers to be discharged home. Patient states that she will return for labor check if she has a return of her pelvic pain symptoms. - Vital Signs Vital signs: Temp Pulse Resp BP Pulse Ox 99.7 F 119 H 16 105/65 100 11/13/18 17:18 11/13/18 17:18 11/13/18 17:18 11/13/18 17:18 11/13/18 17:18 - Laboratory Laboratory results interpreted by me: 11/13/18 18:08 Urine Ketones 80 H Ur Leukocyte Esterase TRACE H 11/13/18 20:51 Labs- Entire Visit 11/13/18 11/13/18 11/13/18 18:08 18:08 20:00 Urine Color YELLOW Urine Appearance SLIGHTLY-CLOUDY Urine pH 6.0 Ur Specific [place] 1.009 Urine Protein NEGATIVE Urine Glucose (UA) NEGATIVE Urine Ketones 80 H Urine Blood NEGATIVE Urine Nitrite NEGATIVE Urine Bilirubin NEGATIVE Urine Urobilinogen NEGATIVE Ur Leukocyte Esterase TRACE H Urine WBC (Auto) 2 Urine RBC (Auto) 1 Urine Bacteria (Auto) TRACE Squamous Epi Cells Auto 9 Urine Mucus (Auto) RARE Urine Ascorbic Acid NEGATIVE Influenza A (Rapid) NEGATIVE Influenza B (Rapid) NEGATIVE Group A Strep Rapid NEGATIVE Discharge - Discharge Clinical Impression: Sore throat Pelvic pain affecting Qualifiers: Trimester: third trimester Qualified Code(s): O26.893 - Other specified related conditions, third trimester UTI (urinary tract infection) Qualifiers: Urinary tract infection type: site unspecified Hematuria presence: without hematuria Qualified Code(s): N39.0 - Urinary tract infection, site not specified Condition: Stable Disposition: HOME, SELF-CARE Instructions: Cephalexin ([facility]), Pelvic Pain in ([facility]), Sore Throat ([facility]), Urinary Tract Infection ([facility]) Additional Instructions: Return immediately for any new or worsening symptoms Followup with your primary care provider, call tomorrow to make a followup appointment Increase oral fluids and stay well-hydrated Urine culture is pending, we will call if you need any different treatment Prescriptions: Cephalexin Monohydrate [Keflex 500 mg Capsule] 500 mg PO BID 5 Days capsule Forms: Return to Work Referrals: YAMILKA VINES MD [Primary Care Provider] - 11/15/18
[2018-11-13] MEDS ORDERED: CEPHALEXIN 500 MG CAPSULE PO ONE (20:51)
[2018-11-13 21:23] VITALS: BP 106/68
== END 2018-11-13 21:37 | disposition home or self-care (01) ==
LOC: ER 17:09
DX: O99.513 Diseases of the respiratory system complicating pregnancy, third trimester (principal); J02.9 Acute pharyngitis, unspecified; J34.89 Other specified disorders of nose and nasal sinuses; O23.43 Unspecified infection of urinary tract in pregnancy, third trimester; O26.893 Other specified pregnancy related conditions, third trimester; R10.2 Pelvic and perineal pain; R51 Headache; R05 Cough; R68.83 Chills (without fever); Z3A.29 29 weeks gestation of pregnancy
CPT/HCPCS: 99283; 96360; 87070; 87086; 87880; 81001; 87804; J3490; J7030

== ENCOUNTER 2018-11-14 21:02 | Emergency (ER) | payer MEDICAID ==
[2018-11-14 21:37] LABS: APPEARANCE,URINE CLOUDY; BILIRUBIN,URINE NEGATIVE (NEGATIVE); COLOR,URINE YELLOW; GLUCOSE, URINE NEGATIVE (NEGATIVE); KETONES,URINE TRACE mg/dL (NEGATIVE); LEUKOCYTE ESTERASE,URINE MODERATE (NEGATIVE); NITRITE,URINE NEGATIVE (NEGATIVE); PROTEIN,URINE NEGATIVE (NEGATIVE); URINE SPECIFIC GRAVITY 1.005; UROBILINOGEN,URINE NEGATIVE mg/dL (<2.0)
[2018-11-14] MEDS ORDERED: PROMETHAZINE HCL INJ 25 MG/1 ML VIAL IV ONE (22:47)
[2018-11-14] MEDS ORDERED: RINGERS SOLUTION,LACTATED 1,000 ML IV ONE (22:48)
--- NOTE | 2018-11-14 22:50 | ER Document Report ---
ED Medical Screen (RME) - General Chief Complaint: Nausea/Vomiting Stated Complaint: VOMITING BLOOD Time Seen by Provider: 11/14/18 22:40 Primary Care Provider: YAMILKA VINES MD [Primary Care Provider] - Follow up as needed Notes: Patient is a 18-year-old female currently 29 weeks gravid presents to the emergency department for vomiting and vaginal discharge. Patient states she was seen at this facility yesterday diagnosed with a urinary tract infection and given antibiotics. Patient states she took the antibiotics this afternoon took a nap and then when she woke up she vomited multiple times. Patient states she noted red specks in her vomit and she thought it may be blood. Patient states she also started with vaginal discharge today. Patient states she has some generalized lower abdominal cramping which was relieved with IV hydration yesterday. GENERAL: Alert, interacts well. No acute distress. ABDOMEN: Soft, obviously gravid. Non-distended. Bowel sounds present in all 4 quadrants. Nontender I have greeted and performed a rapid initial assessment of this patient. A comprehensive ED assessment and evaluation of the patient, analysis of test results and completion of the medical decision making process will be conducted by additional ED providers. TRAVEL OUTSIDE OF THE [place] IN LAST 30 DAYS: No - Related Data Allergies/Adverse Reactions: No Known Allergies Allergy (Verified 07/14/18 16:03) Past Medical History - Past Medical History Cardiac Medical History: Denies: Hx Coronary Artery Disease, Hx Heart Attack, Hx Hypertension Pulmonary Medical History: Denies: Hx Asthma, Hx Bronchitis, Hx COPD, Hx Pneumonia Neurological Medical History: Denies: Hx Cerebrovascular Accident, Hx Seizures Renal/ Medical History: Denies: Hx Peritoneal Dialysis GI Medical History: Reports: Hx Gastroesophageal Reflux Disease Musculoskeltal Medical History: Denies Hx Arthritis Past Surgical History: Denies: Hx Hysterectomy - Immunizations Immunizations up to date: Yes Hx Diphtheria, Pertussis, Tetanus Vaccination: Yes Physical Exam - Vital signs Vitals: Temp Pulse Resp BP Pulse Ox 98.1 F 94 19 107/65 96 11/14/18 21:14 11/14/18 21:14 11/14/18 21:14 11/14/18 21:14 11/14/18 21:14 Course - Vital Signs Vital signs: Temp Pulse Resp BP Pulse Ox 98.1 F 94 19 107/65 96 11/14/18 21:14 11/14/18 21:14 11/14/18 21:14 11/14/18 21:14 11/14/18 21:14 - Laboratory Laboratory results interpreted by me: 11/14/18 21:20 Urine Ketones TRACE H Ur Leukocyte Esterase MODERATE H Doctor's Discharge - Discharge Referrals: YAMILKA VINES MD [Primary Care Provider] - Follow up as needed
[2018-11-14 23:44] LABS: ABSOLUTE MONOCYTES (AUTO) 0.4 10^3/uL (0.1-1.4); ABSOLUTE NEUT (AUTO) 2.8 10^3/uL (1.7-8.2); BASOPHILS % (AUTO) 0.4 % (0-2); EOSINOPHILS % (AUTO) 0.8 % (0-6); HEMATOCRIT 37.7 % (36.0-47.0); HEMOGLOBIN 13.1 g/dL (12.0-15.5); LYMPHOCYTES % (AUTO) 23.9 % (13-45); MEAN CORPUSCULAR HEMOGLOBIN 33.4 pg (27.0-33.4); MEAN CORPUSCULAR HGB CONC 34.8 g/dL (32.0-36.0); MEAN CORPUSCULAR VOLUME 96 fl (80-97); MONOCYTES % (AUTO) 9.8 % (3-13); PLATELET COUNT 163 10^3/uL (150-450); RED BLOOD COUNT 3.92 10^6/uL (3.72-5.28); RED CELL DISTRIBUTION WIDTH 14.1 % (11.5-14.0); SEGMENTED NEUTROPHILS % (AUTO) 65.1 % (42-78); TOTAL CELLS COUNTED % (AUTO) 100 %; WHITE BLOOD COUNT 4.3 10^3/uL (4.0-10.5)
[2018-11-15 00:13] LABS: ALANINE AMINOTRANSFERASE 35 U/L (9-52); ALBUMIN 3.6 g/dL (3.5-5.0); ALKALINE PHOSPHATASE 177 U/L (38-126); ANION GAP 7 (5-19); ASPARTATE AMINO TRANSFERASE 55 U/L (14-36); BILIRUBIN,DIRECT 0.2 mg/dL (0.0-0.4); BLOOD UREA NITROGEN 5 mg/dL (7-20); CALCIUM 8.7 mg/dL (8.4-10.2); CARBON DIOXIDE 25 mmol/L (22-30); CHLORIDE 102 mmol/L (98-107); GLUCOSE 71 mg/dL (75-110); POTASSIUM 3.5 mmol/L (3.6-5.0); SODIUM 134.2 mmol/L (137-145); TOTAL PROTEIN 6.8 g/dL (6.3-8.2)
--- NOTE | 2018-11-15 02:10 | ER Document Report ---
ED General - General Chief Complaint: Nausea/Vomiting Stated Complaint: VOMITING BLOOD Time Seen by Provider: 11/14/18 22:40 Primary Care Provider: YAMILKA VINES MD [Primary Care Provider] - Follow up as needed Notes: Patient is a 18-year-old female currently 29 weeks , no chronic medical problems who presents with 2 days of nausea and vomiting. Was seen in the emergency department yesterday, diagnosed with urinary tract infection. States that she returned because she continued to vomit today and noticed small flecks of blood in the vomitus. She states that since receiving treatment here in the emergency department she has been able to keep fluids down and feels much better. Nothing seems to worsen her symptoms. Has had similar symptoms during this . Continues to feel active movement. No vaginal bleeding or heavy vaginal discharge. Has been taking antibiotics as prescribed. Has not yet followed up with her INTERVENTION TEACHER regarding today's concerns. TRAVEL OUTSIDE OF THE [place] IN LAST 30 DAYS: No - Related Data Allergies/Adverse Reactions: No Known Allergies Allergy (Verified 07/14/18 16:03) Past Medical History - General Information source: Patient - Social History Smoking Status: Never Smoker Frequency of alcohol use: None Drug Abuse: None Lives with: Spouse/Significant other Family History: Reviewed & Not Pertinent Patient has suicidal ideation: No Patient has homicidal ideation: No - Past Medical History Cardiac Medical History: Denies: Hx Coronary Artery Disease, Hx Heart Attack, Hx Hypertension Pulmonary Medical History: Denies: Hx Asthma, Hx Bronchitis, Hx COPD, Hx Pneumonia Neurological Medical History: Denies: Hx Cerebrovascular Accident, Hx Seizures Renal/ Medical History: Denies: Hx Peritoneal Dialysis GI Medical History: Reports: Hx Gastroesophageal Reflux Disease Musculoskeletal Medical History: Denies Hx Arthritis Past Surgical History: Denies: Hx Hysterectomy - Immunizations Immunizations up to date: Yes Hx Diphtheria, Pertussis, Tetanus Vaccination: Yes Review of Systems - Review of Systems Notes: Constitutional: Negative for fever. HENT: Negative for sore throat. Eyes: Negative for visual changes. Cardiovascular: Negative for chest pain. Respiratory: Negative for shortness of breath. Gastrointestinal: Negative for abdominal pain, positive for nausea and vomiting Genitourinary: Negative for dysuria. Musculoskeletal: Negative for back pain. Skin: Negative for rash. Neurological: Negative for headaches, weakness or numbness. 10 point ROS negative except as marked above and in HPI. Physical Exam - Vital signs Vitals: Temp Pulse Resp BP Pulse Ox 98.1 F 94 19 107/65 96 11/14/18 21:14 11/14/18 21:14 11/14/18 21:14 11/14/18 21:14 11/14/18 21:14 Interpretation: Normal Notes: PHYSICAL EXAMINATION: GENERAL: Well-appearing, well-nourished and in no acute distress. HEAD: Atraumatic, normocephalic. EYES: Pupils equal round and reactive to light, extraocular movements intact, sclera anicteric, conjunctiva are normal. ENT: nares patent, oropharynx clear without exudates. Moist mucous membranes. NECK: Normal range of motion, supple without lymphadenopathy LUNGS: Breath sounds clear to auscultation bilaterally and equal. No wheezes rales or rhonchi. HEART: Regular rate and rhythm without murmurs ABDOMEN: Soft, gravid uterus, nontender, normoactive bowel sounds. No guarding, no rebound. No masses appreciated. EXTREMITIES: Normal range of motion, no pitting or edema. No cyanosis. NEUROLOGICAL: No focal neurological deficits. Moves all extremities spontaneously and on command. PSYCH: Normal mood, normal affect. SKIN: Warm, Dry, normal turgor, no rashes or lesions noted. Course - Re-evaluation Re-evalutation: 11/15/18 02:08 Patient presents with persistent vomiting during . Vitals at time of arrival unremarkable without tachycardia or hypotension. Laboratories reveal a normal creatinine and no evidence of significant dehydration. Patient did have small flecks of blood in her vomitus which was what she was very concerned about. No large volume hematemesis. Patient was able to tolerate oral intake here in the emergency department. IV fluids were provided. Bedside ultrasound shows appropriate heart rate for gestational age with active movement. No vaginal bleeding or discharge. Based on abdominal exam, vitals and history I do not suspect an acute appendicitis, cholestasis of , acute cholecystitis, pancreatitis, or bowel obstruction. At this time will discharge with return precautions and follow-up recommendations. Verbal discharge instructions given a the bedside and opportunity for questions given. Medication warnings reviewed. Patient is in agreement with this plan and has verbalized understanding of return precautions and the need for primary care follow-up in the next 24-72 hours. - Vital Signs Vital signs: Temp Pulse Resp BP Pulse Ox 98.1 F 94 19 107/65 96 11/14/18 21:14 11/14/18 21:14 11/14/18 21:14 11/14/18 21:14 11/14/18 21:14 - Laboratory Result Diagrams: 11/14/18 23:20 11/14/18 23:20 Laboratory results interpreted by me: 11/14/18 11/14/18 11/14/18 21:20 23:20 23:20 RDW 14.1 H Sodium 134.2 L Potassium 3.5 L BUN 5 L Glucose 71 L AST 55 H Alkaline Phosphatase 177 H Urine Ketones TRACE H Ur Leukocyte Esterase MODERATE H Discharge - Discharge Clinical Impression: Third trimester Nausea and vomiting Qualifiers: Vomiting type: unspecified Vomiting Intractability: non-intractable Qualified Code(s): R11.2 - Nausea with vomiting, unspecified Condition: Good Disposition: HOME, SELF-CARE Additional Instructions: You have been seen for vomiting during . You should continue to drink plenty of water and consider taking a solution such as Pedialyte if your having difficulty eating food. Please return if you become unable to drink any fluids for more than 12 hours, urinate less than twice a day, pass out, or have any other symptoms that are concerning to you. Referrals: YAMILKA VINES MD [Primary Care Provider] - Follow up as needed
[2018-11-15 02:25] VITALS: BP 101/56
== END 2018-11-15 02:25 | disposition home or self-care (01) ==
LOC: ER 21:02
DX: O21.2 Late vomiting of pregnancy (principal); Z3A.29 29 weeks gestation of pregnancy
CPT/HCPCS: 99284; 96361; 96374; 36415; 87086; 85025; 80053; 81001; J2550; J7120

== ENCOUNTER 2018-12-11 09:11 | Outpatient (CLI) | payer MEDICAID ==
[2018-12-11 10:35] LABS: APPEARANCE,URINE SLIGHTLY-CLOUDY; BILIRUBIN,URINE NEGATIVE (NEGATIVE); COLOR,URINE YELLOW; GLUCOSE, URINE NEGATIVE (NEGATIVE); KETONES,URINE NEGATIVE (NEGATIVE); LEUKOCYTE ESTERASE,URINE SMALL (NEGATIVE); NITRITE,URINE NEGATIVE (NEGATIVE); PROTEIN,URINE NEGATIVE (NEGATIVE); URINE SPECIFIC GRAVITY 1.005; UROBILINOGEN,URINE NEGATIVE mg/dL (<2.0)
[2018-12-11 10:56] LABS: URINE AMPHETAMINES SCREEN NEGATIVE; URINE BARBITURATES SCREEN NEGATIVE; URINE BENZODIAZEPINES SCREEN NEGATIVE; URINE COCAINE SCREEN NEGATIVE; URINE MARIJUANA (THC) SCREEN NEGATIVE; URINE METHADONE SCREEN NEGATIVE; URINE PHENCYCLIDINE SCREEN NEGATIVE
--- NOTE | 2018-12-11 18:21 | Non Stress Test Report ---
Non Stress Test Datetime Report Generated by CPN: 12/11/2018 18:21 DEMOGRAPHIC EGA NST: 33.3 INDICATION Indication for Study: Ordered by Provider VITAL SIGNS Temperature - NST: 97.6 RESP - NST: 16 NBPSYS NST: 96 NBPDIA NST: 59 MONITORING Monitor Explained: Monitor Explained; Test Explained; Patient Verbalized Understanding; Other Time on Monitor: 12/11/2018 09:35 Time off Monitor: 12/11/2018 10:00 NST Duration: 25 NST INTERVENTIONS NST Interventions: PO Hydration Physician Notified NST: Dr Reji BABY A: [id number] BABY A Movement : Present Contraction Frequency : 3-12 FHR Baseline : 135 Accelerations : 15X15 Decelerations : None Variability : Moderate 6-25bpm NST Review: Meets Criteria for Reactive NST NST Review and Verified By : Gregory Arzola RN NST Results: Reactive NST REPORT Report Trigger: Send Report
== END 2018-12-11 11:30 | disposition home or self-care (01) ==
LOC: LC 09:11
PROVIDERS: ATTEND Obstetrics & Gynecology
PROC: 4A1HXCZ Monitoring of Products of Conception, Cardiac Rate, External Approach (ICD-10-PCS; principal; 2018-12-11)
DX: O26.893 Other specified pregnancy related conditions, third trimester (principal); R10.9 Unspecified abdominal pain; Z3A.33 33 weeks gestation of pregnancy
CPT/HCPCS: 59025; 80307; 81001

== ENCOUNTER 2019-01-27 16:21 | Inpatient (IN) | payer MEDICAID ==
[2019-01-27] MEDS ORDERED: RINGERS SOLUTION,LACTATED 300 ML IV ONE (16:41)
[2019-01-27] MEDS ORDERED: RINGERS SOLUTION,LACTATED 1,000 ML IV PRN (16:41)
[2019-01-27] MEDS ORDERED: HYDROXYZINE PAMOATE 50 MG CAPSULE PO PRN (17:10)
--- NOTE | 2019-01-27 17:18 | Admission Physical ---
Datetime Report Generated by CPN: 01/27/2019 17:18 CURRENT ADMISSION Chief Complaint: Sent from OB Office for Evaluation and Treatment - Please Specify Indication for Induction: Oligohydramnios Admit Impression : Term, Intrauterine Admit Plan: Admit to Unit Admit Plan- Other: obs overnight, start IOL in AM per dr sinha ALLERGIES Medication Allergies: No Medication Allergies: No Known Allergies (07/14/2018) Latex: No Latex Allergies Food Allergies: no Environmental Allergies: no OBSTETRICAL HISTORY EDC: 01/26/2019 00:00 : 2 Para: 0 Term: 0 : 0 SAB: 1 IAB: 0 Ectopic: 0 Livin Cesareans: 0 VBACs: 0 Multiple Births: 0 Gestational Diabetes: No Rh Sensitization: No Incompetent Cervix: No REYNALDO: No Infertility: No ART Treatment: No Uterine Anomaly: No IUGR: No Hx Previous C/S: No Macrosomia: No Hx Loss/Stillborn: No PIH: No Hx : No Placenta Previa/Abruption: No Depression/PP Depression: No PTL/PROM: No Post Hemorrhage: No Current Procedures: Ultrasound SEE RECORDS Alcohol: No Marijuana : No Cocaine: No Other Illicit Drugs: No Cigarettes: Never Smoker. [id number] MEDICAL HISTORY Diabetes: No Blood Transfusion: No Pulmonary Disease (Asthma, TB): No Breast Disease: No Hypertension: No Hook Up Surgery: No Heart Disease: No Hosp/Surgery: No Autoimmune Disorder: No Anesthetic Complications: Yes Kidney Disease: Yes Abnormal Pap Smear: No Neuro/Epilepsy: No Psychiatric Disorders: No Other Medical Diseases: No Hepatitis/Liver Disease: No Significant Family History: No Varicosities/Phlebitis: No Trauma/Violence : No Thyroid Dysfunction: No Medical History Comments: uti with and without /wisdom teeth extracted INFECTIOUS HISTORY Gonorrhea: No Genital Herpes: No Chlamydia: Yes Tuberculosis: No Syphilis: No Hepatitis: No HIV/AIDS Exposure: No Rash or Viral Illness: No HPV: No Infectious History Comments: Hx of chlymadia PHYSICAL EXAM General: Normal HEENT: Normal Neurologic: Normal Thyroid: Deferred Heart: Normal Lungs: Normal Breast: Deferred Back: Normal Abdomen: Normal Genitourinary Exam: Deferred Extremities: Normal DTRs: Deferred Pelvic Type: Not Done Vital Signs: Reviewed VAGINAL EXAM Dilatation: 2-3 Effacement: 90 Contraction Comments: q2 mins MEMBRANES Pooling: Negative FETUS A EGA: 40.1 Monitoring: External US FHR- Baseline: 135 Variability: Moderate 6-25bpm Accelerations: 15X15 Decelerations: None Estimated Weight (gm): 7lb Presentation: Vertex Admit Comment: at 40w1d sent from office for direct admit due to oligohydramnios. GBS neg/ c/w Dr Sinha, plan to start IOL in AM PLANS FOR LABOR AND DELIVERY Labor and Delivery: None Pain Management: Natural Feeding Preference: Breast Benefit of Breast Feed Discussed: Yes Circumcision: Yes INFORMED CONSENT Assignment: Broderick Sinha MD Signature: with User ID: [email or web address] : with User ID: [email or web address]
[2019-01-27 17:30] LABS: ABSOLUTE LYMPHOCYTES (AUTO) 1.3 10^3/uL (0.5-4.7); ABSOLUTE MONOCYTES (AUTO) 0.5 10^3/uL (0.1-1.4); ABSOLUTE NEUT (AUTO) 3.7 10^3/uL (1.7-8.2); BASOPHILS % (AUTO) 0.6 % (0-2); EOSINOPHILS % (AUTO) 0.5 % (0-6); HEMATOCRIT 39.5 % (36.0-47.0); HEMOGLOBIN 13.5 g/dL (12.0-15.5); LYMPHOCYTES % (AUTO) 23.1 % (13-45); MEAN CORPUSCULAR HEMOGLOBIN 33.5 pg (27.0-33.4); MEAN CORPUSCULAR HGB CONC 34.2 g/dL (32.0-36.0); MEAN CORPUSCULAR VOLUME 98 fl (80-97); MONOCYTES % (AUTO) 8.8 % (3-13); PLATELET COUNT 136 10^3/uL (150-450); RED BLOOD COUNT 4.03 10^6/uL (3.72-5.28); RED CELL DISTRIBUTION WIDTH 14.5 % (11.5-14.0); TOTAL CELLS COUNTED % (AUTO) 100 %; WHITE BLOOD COUNT 5.5 10^3/uL (4.0-10.5)
[2019-01-27 17:49] LABS: URINE AMPHETAMINES SCREEN NEGATIVE; URINE BARBITURATES SCREEN NEGATIVE; URINE BENZODIAZEPINES SCREEN NEGATIVE; URINE COCAINE SCREEN NEGATIVE; URINE MARIJUANA (THC) SCREEN NEGATIVE; URINE METHADONE SCREEN NEGATIVE; URINE PHENCYCLIDINE SCREEN NEGATIVE
[2019-01-28] MEDS ORDERED: HYDROXYZINE PAMOATE 50 MG CAPSULE ONE (00:32)
[2019-01-28] MEDS ORDERED: ZOLPIDEM TARTRATE 5 MG TABLET ONE (01:52)
[2019-01-28] MEDS ORDERED: ZOLPIDEM TARTRATE 5 MG TABLET PO PRN (01:55)
[2019-01-28] MEDS ORDERED: EPHEDRINE SULFATE INJ 50 MG/1 ML AMPULE ONE (19:45)
[2019-01-28] MEDS ORDERED: OXYTOCIN/NORMAL SALINE 20 UNIT/1,000 ML RTUINJ ONE (19:45)
[2019-01-28] MEDS ORDERED: FENTANYL/BUPIVACAINE/NS/PF 300 MCG/150 ML RTUINJ EPI ONE (19:45)
[2019-01-28] MEDS ORDERED: MISOPROSTOL 0.2 MG TABLET ONE (19:45)
[2019-01-28] MEDS ORDERED: BUPIVACAINE HCL 0.25 % INJ/PF (2.5 MG/1 ML) 30 ML VIAL ONE (19:45)
[2019-01-28] MEDS ORDERED: LIDOCAINE 1% INJ-PF (10 MG/ML) 30 ML SDV ONE (19:45)
[2019-01-28] MEDS ORDERED: FENTANYL CITRATE INJ/PF 100 MCG/2 ML AMPUL ONE (19:53)
[2019-01-28] MEDS ORDERED: PHENYLEPHRINE HCL INJ/PF 10 MG/1 ML SDV ONE (19:53)
[2019-01-29] MEDS ORDERED: DIBUCAINE 1% OINTMENT 56 GM TP PRN (00:44)
[2019-01-29] MEDS ORDERED: ZOLPIDEM TARTRATE 5 MG TABLET PO PRN (00:44)
[2019-01-29] MEDS ORDERED: PSEUDOEPHEDRINE HCL 30 MG TABLET PO PRN (00:44)
[2019-01-29] MEDS ORDERED: PROMETHAZINE HCL INJ 25 MG/1 ML VIAL IV PRN (00:44)
[2019-01-29] MEDS ORDERED: PROMETHAZINE HCL 25 MG SUPP.RECT PR PRN (00:44)
[2019-01-29] MEDS ORDERED: MEASLES,MUMPS&RUBELLA VACC/PF 0.5 ML VIAL SUBCUT PRN (00:44)
[2019-01-29] MEDS ORDERED: MAGNESIUM HYDROXIDE SUSP 30 ML UDCUP PO PRN (00:44)
[2019-01-29] MEDS ORDERED: GLYCERIN/WITCH HAZEL LEAF 1 EACH MED..WIPE TP PRN (00:44)
[2019-01-29] MEDS ORDERED: ACETAMINOPHEN WITH CODEINE #3 TABLET PO PRN ×2 (00:44)
[2019-01-29] MEDS ORDERED: NA PHOS,M-B/NA PHOS,DI-BA (ADULT) 133 ML ENEMA PR PRN (00:44)
[2019-01-29] MEDS ORDERED: DIPHENHYDRAMINE HCL 25 MG CAPSULE PO PRN (00:44)
[2019-01-29] MEDS ORDERED: ACETAMINOPHEN 650 MG SUPP.RECT PR PRN (00:44)
[2019-01-29] MEDS ORDERED: OXYTOCIN/NORMAL SALINE 20 UNIT/1,000 ML RTUINJ IV PRN (00:44)
[2019-01-29] MEDS ORDERED: DIPH/PERTUSS(ACELL)/TETANUS VAC/PF 0.5 ML SYR (>=10YO) IM PRN (00:44)
[2019-01-29] MEDS ORDERED: PROMETHAZINE HCL 25 MG TABLET PO PRN (00:44)
[2019-01-29] MEDS ORDERED: IBUPROFEN 800 MG TABLET ONE (00:51)
--- NOTE | 2019-01-29 02:16 | Delivery Summary ---
Del Sum A-C Datetime Report Generated by CPN: 01/29/2019 02:15 DELIVERY PERSONNEL DELIVERY PERSONNEL: [id number] Delivery Doctor:: Nadia Joel MD Labor and Delivery Nurse:: Nia Flor, crossing watchman Nurse:: Sanna Licea, RN Rock Loader/NAIL GALVANIZER: Jenise Macedolor, ST MATERNAL INFORMATION Delivery Anesthesia: Epidural Medications After Delivery: Pitocin Drip 20 Units/1000ml NSS Maternal Complications: None LABOR SUMMARY EDC: 01/26/2019 00:00 No. Babies in Womb: 1 Attempted: No Labor Anesthesia: Epidural LABOR INFORMATION Reason for Induction: Oligohydramnios Onset of Labor: 01/28/2019 09:19 Complete Dilatation: 01/28/2019 22:43 Oxytocin: N/A Group B Beta Strep: neg Antibiotics # of Doses: N/A Antibiotics Time of Last Dose: N/A Name of Antibiotic Given: N/A Steroids Given: None Reason Steroids Not Administered: Not Applicable MEMBRANES Membranes Rupture Method: Artificial Rupture of Membranes: 01/28/2019 17:31 Length of Rupture (hr): 6.72 Amniotic Fluid Color: Clear Amniotic Fluid Amount: Small Amniotic Fluid Odor: None STAGES OF LABOR Stage 1 hr: 13 Stage 1 min: 24 Stage 2 hr: 1 Stage 2 min: 31 Stage 3 hr: 0 Stage 3 min: 5 Total Time in Labor hr: 15 Total Time in Labor min: 0 VAGINAL DELIVERY Episiotomy: None Laceration #1: Perineal Laceration Extension #1: Second Degree Laceration #2: None Laceration Extension #2: N/A Laceration #3: None Laceration Extension #3: N/A Laceration Repair: Yes Laceration Repair Note: repair of left perineal laceration with 3-0 chromic in the usual fashion Sponge Count Correct: Vaginal Sweep Performed Sharps Count Correct: Yes CSECTION DELIVERY Primary Indication: N/A Secondary Indication: N/A CSection Incidence: N/A Labor: N/A Elective: N/A CSection Incision: N/A BABY A INFORMATION Infant Delivery Date/Time: 01/29/2019 00:14 Method of Delivery: Vaginal Born in Route : No : N/A Forceps: N/A Vacuum Extraction: N/A Shoulder Dystocia : No PRESENTATION/POSITION BABY A Presentation: Cephalic Cephalic Presentation: Vertex Vertex Position: Left Occipital Anterior Breech Presentation: N/A PLACENTA INFORMATION BABY A Placenta Delivery Time : 01/29/2019 00:19 Placenta Method of Delivery: Spontaneous Placenta Status: Delivered SCORES BABY A Heart Rate 1 min: >100 bpm Resp Effort 1 min: Good Cry Reflex Irritability 1 min: Cough or Sneeze or Pulls Away Muscle Tone 1 min: Active Motion Color 1 min: Body [place], Extremities Blue Resuscitation Effort 1 min: Tactile Stimulation SCORE 1 MIN: 9 Heart Rate 5 min: >100 bpm Resp Effort 5 min: Good Cry Reflex Irritability 5 min: Cough or Sneeze or Pulls Away Muscle Tone 5 min: Active Motion Color 5 min: Body [place], Extremities Blue Resuscitation Effort 5 min: Tactile Stimulation SCORE 5 MIN: 9 INFORMATION BABY A Gestational Age at Delivery: 40.2 Gestational Status: Full Term- 39- 40.6 Weeks Outcome : Liveborn Infant Condition : Stable Sex: Male IDENTIFICATION BABY A Verification Date/Time: 01/29/2019 00:30 ID Band Number: [id number] Mother's Name Verified: Yes RN Verifying Infant: B. Ring RN Additional Verifying Personnel: LAmbrose Chou PARI MUTUEL TICKET SELLER WEIGHT/LENGTH BABY A Birthweight (gm): 3221 Infant Weight (lb): 7 Infant Weight (oz): 2 Length (in): 20.00 Length (cm): 50.80 CORD INFORMATION BABY A No. Cord Vessels: 3 Nuchal Cord : Around Neck x2, Tight Cord Blood Taken: Yes-For Storage (Mom's Blood type +) Suction: None ASSESSMENT BABY A Infant Complications: Oligohydramnios Physical Findings at Delivery: Molding of the Head Physical Findings- Other: See full nursery network and threat support specialist Infant Respirations: Appears Normal Skin to Skin: Yes Skin to Skin Time (min): 60 Blueprint Trimmer/ALS Called : No Infant Care By: Jasmyne Licea RN Transferred To: Remains with Mother BABY B INFORMATION : N/A SIGNATURES Signature: with User ID: [email or web address] : I was personally available for consultation and serving as supervising physician for the MLP.
--- NOTE | 2019-01-29 02:16 | Warning Signs in Babies ---
VOD Warning Signs Datetime Report Generated by [facility]: 01/29/2019 02:15 VOD#[id number] -Warning Signs in Babies: Needs to be viewed. (12/11/2018 18:18:Nia Flor RN)
[2019-01-29] MEDS ORDERED: IBUPROFEN 800 MG TABLET PO SCH ×2 (06:00→10:00)
[2019-01-29] MEDS ORDERED: IBUPROFEN 800 MG TABLET PO ONE (09:15)
[2019-01-29] MEDS: SENNOSIDES/DOCUSATE 8.6-50 MG 1 EACH TABLET PO SCH (09:45)
[2019-01-29] MEDS: DOCUSATE SODIUM 100 MG CAPSULE PO SCH ×2 (09:45→18:03)
[2019-01-29] MEDS: FERROUS SULFATE 325 MG TABLET PO SCH ×2 (09:45→18:03)
[2019-01-29] MEDS: FAMOTIDINE 20 MG TABLET PO SCH ×2 (09:45→22:51)
[2019-01-29] MEDS: PRENATAL VITAMIN W DHA CAPSULE PO SCH (09:45)
[2019-01-29] MEDS: BENZOCAINE/MENTHOL AEROSOL SPRAY 56 ML TOP PRN (09:51)
--- NOTE | 2019-01-29 10:18 | PDOC PROGRESS REPORT ---
Subjective-OB Progress Note for:: 01/29/19 Subjective: Pt doing well, no concerns. She reports light bleeding, regular diet and voiding without difficulty. Physical Exam (OB) Vital Signs: Temp Pulse Resp BP Pulse Ox 97.9 F 84 18 106/64 99 01/29/19 07:49 01/29/19 07:49 01/29/19 07:49 01/29/19 07:49 01/29/19 07:49 Intake & Output 01/28/19 01/29/19 01/30/19 06:59 06:59 06:59 Weight 64.8 kg - Abdomen Description: Soft, Round Hernia Present: Yes Fundal Description: Firm, Midline Fundal Height: u/u - u/2 Objective-Diagnostic Laboratory: 01/27/19 17:11 Assessment and Plan(PN) - Assessment and Plan (1) Vaginal delivery Is this a current diagnosis for this admission?: Yes - Time Spent with Patient Time with patient: Less than 15 minutes Medications reviewed and adjusted accordingly: Yes - Disposition Anticipated Discharge: Home Within: within 24 hours
[2019-01-29] MEDS: IBUPROFEN 800 MG TABLET PO SCH (18:02)
[2019-01-30] MEDS: IBUPROFEN 800 MG TABLET PO SCH ×3 (02:12→09:22)
--- NOTE | 2019-01-30 07:27 | PDOC DISCHARGE SUMMARY ---
Final Diagnosis Discharge Date: 01/30/19 - Final Diagnosis (1) Vaginal delivery Is this a current diagnosis for this admission?: Yes Discharge Data - Discharge Medication Home Medications: Pnv No.95/Ferrous Fum/Folic AC [ Vitamin Tablet] 1 tab PO DAILY 07/14/18 Reason(s) for Admission: Onset of Labor, Obstetric Complications Admission Note: Sent from office for IOL d/t Oligo, then spontaneous labor without pitocin Procedures: NST Procedure(s) Note: AROM Intrapartum Procedure(s): Spontaneous Vaginal Delivery Complication(s): Laceration-Perineal Laceration-Degree: 2nd - Diagnosis Test Laboratory: Temp Pulse Resp BP Pulse Ox 97.5 F 79 18 138/92 H 100 01/29/19 19:46 01/29/19 19:46 01/29/19 19:46 01/29/19 19:46 01/29/19 19:46 01/27/19 01/27/19 17:00 17:11 RBC 4.03 Hgb 13.5 Hct 39.5 Urine Opiates Screen NEGATIVE - Discharge information/Instructions Discharge Activity: Balance Activity w/Rest, Pelvic Rest Discharge Diet: Regular Disposition: HOME, SELF-CARE Follow up with: [facility] in: 4, Weeks
[2019-01-30 07:34] LABS: HEMATOCRIT 32.1 % (36.0-47.0); MEAN CORPUSCULAR HEMOGLOBIN 33.8 pg (27.0-33.4); MEAN CORPUSCULAR HGB CONC 34.4 g/dL (32.0-36.0); MEAN CORPUSCULAR VOLUME 98 fl (80-97); PLATELET COUNT 109 10^3/uL (150-450); RED BLOOD COUNT 3.27 10^6/uL (3.72-5.28); RED CELL DISTRIBUTION WIDTH 14.6 % (11.5-14.0); WHITE BLOOD COUNT 8.1 10^3/uL (4.0-10.5)
[2019-01-30 07:37] LABS: HEMOGLOBIN 11.1 g/dL (12.0-15.5)
[2019-01-30] MEDS: FAMOTIDINE 20 MG TABLET PO SCH (09:22)
[2019-01-30] MEDS: FERROUS SULFATE 325 MG TABLET PO SCH (09:22)
[2019-01-30] MEDS: DOCUSATE SODIUM 100 MG CAPSULE PO SCH (09:23)
[2019-01-30] MEDS: SENNOSIDES/DOCUSATE 8.6-50 MG 1 EACH TABLET PO SCH (09:23)
[2019-01-30] MEDS: PRENATAL VITAMIN W DHA CAPSULE PO SCH (09:23)
[2019-01-30 12:17] VITALS: BP 121/81
[2019-01-30] MEDS: BENZOCAINE/MENTHOL AEROSOL SPRAY 56 ML TOP PRN (14:49)
== END 2019-01-30 16:30 | disposition home or self-care (01) | DRG 806 ==
LOC: LR 16:21 → 2S 01-29 02:39
PROVIDERS: ADMIT Obstetrics & Gynecology; ATTEND Obstetrics & Gynecology
PROC: 10907ZC Drainage of Amniotic Fluid, Therapeutic from Products of Conception, Via Natural or Artificial Opening (ICD-10-PCS; 2019-01-28)
PROC: 10E0XZZ Delivery of Products of Conception, External Approach (ICD-10-PCS; principal; 2019-01-29)
PROC: 0KQM0ZZ Repair Perineum Muscle, Open Approach (ICD-10-PCS; 2019-01-29)
PROC: 3E0234Z Introduction of Serum, Toxoid and Vaccine into Muscle, Percutaneous Approach (ICD-10-PCS; 2019-01-30)
DX: O70.1 Second degree perineal laceration during delivery (principal); O41.03X0 Oligohydramnios, third trimester, not applicable or unspecified; Z37.0 Single live birth; O69.1XX0 Labor and delivery complicated by cord around neck, with compression, not applicable or unspecified; Z3A.40 40 weeks gestation of pregnancy; Z23 Encounter for immunization
CPT/HCPCS: 36415; 80307; 85027; 86592; 86850; 86900; 86901; 90715; 94760; J2370; J2590; J3010; J3490

== ENCOUNTER 2019-04-29 17:58 | Emergency (ER) | payer MEDICAID ==
[2019-04-29 18:42] VITALS: BP 121/72
[2019-04-29] MEDS ORDERED: ACETAMINOPHEN 325 MG TABLET PO ONE (19:09)
--- NOTE | 2019-04-29 19:13 | ER Document Report ---
ED Medical Screen (RME) - General Chief Complaint: Rectal Bleeding Stated Complaint: RECTAL BLEEDING Time Seen by Provider: 04/29/19 19:09 Primary Care Provider: YAMILKA VINES MD [Primary Care Provider] - Follow up as needed Mode of Arrival: Ambulatory Information source: Patient Notes: 19-year-old female presented to ED for complaint of rectal bleeding x3 days. Moreno mcnulty states that she has blood on the stool and on the paper when she wipes. She states she just had a baby 2 months ago. Her only medical history is reflux. Patient states she had some rectal bleeding before during and now after her . She states that [facility] told her she continued to have a bleeding after the that she needed to get evaluated. She states her father had prostate cancer and had rectal bleeding so she is concerned for that. Patient was given Tylenol in the pit area and informed she needs to have a thorough rectal exam before being discharged. I have greeted and performed a rapid initial assessment of this patient. A comprehensive ED assessment and evaluation of the patient, analysis of test results and completion of medical decision making process will be conducted by an additional ED providers. TRAVEL OUTSIDE OF THE [place] IN LAST 30 DAYS: No - Related Data Allergies/Adverse Reactions: No Known Allergies Allergy (Verified 07/14/18 16:03) Past Medical History - Past Medical History Cardiac Medical History: Denies: Hx Coronary Artery Disease, Hx Heart Attack, Hx Hypertension Pulmonary Medical History: Denies: Hx Asthma, Hx Bronchitis, Hx COPD, Hx Pneumonia Neurological Medical History: Denies: Hx Cerebrovascular Accident, Hx Seizures Renal/ Medical History: Denies: Hx Peritoneal Dialysis GI Medical History: Reports: Hx Gastroesophageal Reflux Disease Musculoskeltal Medical History: Denies Hx Arthritis Past Surgical History: Denies: Hx Hysterectomy - Immunizations Immunizations up to date: Yes Hx Diphtheria, Pertussis, Tetanus Vaccination: Yes Physical Exam - Vital signs Vitals: Temp Pulse Resp BP Pulse Ox 98.3 F 84 12 121/72 98 04/29/19 18:32 04/29/19 18:32 04/29/19 18:32 04/29/19 18:32 04/29/19 18:32 Course - Vital Signs Vital signs: Temp Pulse Resp BP Pulse Ox 98.3 F 84 12 121/72 98 04/29/19 18:32 04/29/19 18:32 04/29/19 18:32 04/29/19 18:32 04/29/19 18:32 Doctor's Discharge - Discharge Referrals: YAMILKA VINES MD [Primary Care Provider] - Follow up as needed
--- NOTE | 2019-04-29 21:30 | ER Document Report ---
ED GI Bleed / Rectal Pain - General Chief Complaint: Rectal Bleeding Stated Complaint: RECTAL BLEEDING Time Seen by Provider: 04/29/19 19:09 Primary Care Provider: YAMILKA VINES MD [Primary Care Provider] - Follow up as needed Mode of Arrival: Ambulatory Notes: Patient is a 19-year-old female that comes to the emergency department for chief complaint of bright red blood in her stool that she started noticing since yesterday. She states she only has bleeding when she has bowel movement, it is mixed in with normal stool. There is no dark or black blood. Patient states occasionally she gets abdominal cramps but she denies current abdominal pain. She is able to eat/drink without abnormality. She does not report being constipated. She is 3 months . She denies any other complaints. TRAVEL OUTSIDE OF THE [place] IN LAST 30 DAYS: No - Related Data Allergies/Adverse Reactions: No Known Allergies Allergy (Verified 07/14/18 16:03) Past Medical History - General Information source: Patient - Social History Smoking Status: Never Smoker Chew tobacco use (# tins/day): No Frequency of alcohol use: None Drug Abuse: None Lives with: Family Family History: Reviewed & Not Pertinent Patient has suicidal ideation: No Patient has homicidal ideation: No - Past Medical History Cardiac Medical History: Denies: Hx Coronary Artery Disease, Hx Heart Attack, Hx Hypertension Pulmonary Medical History: Denies: Hx Asthma, Hx Bronchitis, Hx COPD, Hx Pneumonia Neurological Medical History: Denies: Hx Cerebrovascular Accident, Hx Seizures Renal/ Medical History: Denies: Hx Peritoneal Dialysis GI Medical History: Reports: Hx Gastroesophageal Reflux Disease Musculoskeletal Medical History: Denies Hx Arthritis Past Surgical History: Denies: Hx Hysterectomy - Immunizations Immunizations up to date: Yes Hx Diphtheria, Pertussis, Tetanus Vaccination: Yes Review of Systems - Review of Systems Constitutional: No symptoms reported EENT: No symptoms reported Cardiovascular: No symptoms reported Respiratory: No symptoms reported Gastrointestinal: See HPI Genitourinary: No symptoms reported Female Genitourinary: No symptoms reported Musculoskeletal: No symptoms reported Skin: No symptoms reported Hematologic/Lymphatic: No symptoms reported Neurological/Psychological: No symptoms reported Physical Exam - Vital signs Vitals: Temp Pulse Resp BP Pulse Ox 98.3 F 84 12 121/72 98 04/29/19 18:32 04/29/19 18:32 04/29/19 18:32 04/29/19 18:32 04/29/19 18:32 - Notes Notes: GENERAL: Alert, interacts well. No acute distress. HEAD: Normocephalic, atraumatic. EYES: Pupils equal, round, and reactive to light. Extraocular movements intact. ENT: Oral mucosa moist, tongue midline. Oropharynx unremarkable. Airway patent. LUNGS: Clear to auscultation bilaterally, no wheezes, rales, or rhonchi. No respiratory distress. HEART: Regular rate and rhythm. No murmur ABDOMEN: Soft, non-tender. Non-distended. Bowel sounds present in all 4 qu adrants. GENITOURINARY: Deferred RECTAL: Small internal hemorrhoid noted at the 4 o'clock position approximately, no tenderness, no gross blood, no abnormality is noted otherwise. Yanet PCT present during exam. EXTREMITIES: Moves all 4 extremities spontaneously. No edema, normal radial and dorsalis pedis pulses bilaterally. No cyanosis. BACK: no cervical, thoracic, lumbar midline tenderness. No saddle anesthesia, normal distal neurovascular exam. NEUROLOGICAL: Alert and oriented x3. Normal speech. Cranial nerves II through XII grossly intact. PSYCH: Normal affect, normal mood. SKIN: Warm, dry, normal turgor. No rashes or lesions noted. Course - Re-evaluation Re-evalutation: Patient without any current complaints. Soft benign abdomen. Unremarkable vital signs. She is very well-appearing. She is only having bright red blood in small amounts with stool but not otherwise. She does have evidence of a small internal hemorrhoid on exam, I suspect this is the bleeding source. Discussed treatment, expectations, follow-up, and return precautions for this with patient in detail. Patient states understanding and agreement with plan. - Vital Signs Vital signs: Temp Pulse Resp BP Pulse Ox 98.3 F 84 12 121/72 98 04/29/19 18:32 04/29/19 18:32 04/29/19 18:32 04/29/19 18:32 04/29/19 18:32 Discharge - Discharge Clinical Impression: Rectal bleeding Condition: Stable Disposition: HOME, SELF-CARE Additional Instructions: Your evaluation shows an internal hemorrhoid. This appears to be the location of your bleeding. I recommend you take the Colace stool softener for the next several days, increase fiber in your diet, drink plenty fluids. Avoid any straining on the toilet. This should resolve with time. Follow-up routinely with primary care. Return for any concerning symptoms including very heavy bleeding, developing or severe pain, or any other concerning symptoms. Prescriptions: Docusate Sodium [Colace 100 mg Capsule] 100 mg PO ASDIR PRN #30 capsule PRN Reason: Referrals: YAMILKA VINES MD [Primary Care Provider] - Follow up as needed
== END 2019-04-29 22:38 | disposition home or self-care (01) ==
LOC: ER 17:58
DX: K62.5 Hemorrhage of anus and rectum (principal); R19.5 Other fecal abnormalities; R10.9 Unspecified abdominal pain
CPT/HCPCS: 99283; J3490

== ENCOUNTER → 2019-07-08 | Outpatient (CLI) | payer MEDICAID ==
[2019-07-08 17:57] LABS: BACTERIA (WET MOUNT) 4+ BACTERIA SEEN; EPITHELIALS (WET MOUNT) 3+ EPITHELIALS SEEN; T.VAGINALIS (WET MOUNT) NO TRICHOMONAS SEEN; YEAST (WET MOUNT) NO YEAST SEEN
[2019-07-08 17:58] LABS: WBCS (WET MOUNT) 1+ WBCS SEEN
[2019-07-08 19:21] LABS: CHLAM PCR NOT DETECTED (NOT DETECT)
== END ==
LOC: LAB 17:38
PROVIDERS: ATTEND Nurse Practitioner Family
DX: N89.8 Other specified noninflammatory disorders of vagina (principal); R10.84 Generalized abdominal pain
CPT/HCPCS: 87210; 87491; 87591

== ENCOUNTER 2020-08-09 16:17 | Outpatient (CLI) | payer MEDICAID ==
--- NOTE | 2020-08-09 17:31 | Non Stress Test Report ---
Non Stress Test Datetime Report Generated by CPN: 08/09/2020 17:30 DEMOGRAPHIC EGA NST: 40.2 INDICATION Indication for Study (NST) Other: tachycardia, sent from Dr office VITAL SIGNS Temperature - NST: 97.3 Pulse - NST: 81 RESP - NST: 18 NBPSYS NST: 112 NBPDIA NST: 75 MONITORING Monitor Explained: Monitor Explained; Test Explained; Patient Verbalized Understanding Time on Monitor: 08/09/2020 16:40 Time off Monitor: 08/09/2020 17:00 NST Duration: 20 NST INTERVENTIONS Physician Notified NST: Dr. Carlson BABY A: [id number] BABY A Movement : Present Contraction Frequency : 4-8 FHR Baseline : 150 Accelerations : 15X15 Decelerations : None Variability : Absent - Undetectable NST Review: Meets Criteria for Reactive NST NST Review and Verified By : Tucker Mcmullen RN NST Results: Reactive NST REPORT Report Trigger: Send Report
== END 2020-08-09 17:17 | disposition home or self-care (01) ==
LOC: LC 16:17
PROVIDERS: ATTEND Obstetrics & Gynecology
DX: O36.8330 Maternal care for abnormalities of the fetal heart rate or rhythm, third trimester, not applicable or unspecified (principal); Z3A.40 40 weeks gestation of pregnancy
CPT/HCPCS: 59025; 94760

== ENCOUNTER 2020-08-10 11:45 | Outpatient (CLI) | payer MEDICAID ==
[2020-08-10 12:23] LABS: APPEARANCE,URINE CLOUDY; BILIRUBIN,URINE NEGATIVE (NEGATIVE); COLOR,URINE YELLOW; GLUCOSE, URINE NEGATIVE (NEGATIVE); KETONES,URINE NEGATIVE (NEGATIVE); LEUKOCYTE ESTERASE,URINE LARGE (NEGATIVE); NITRITE,URINE NEGATIVE (NEGATIVE); PROTEIN,URINE NEGATIVE (NEGATIVE); URINE SPECIFIC GRAVITY 1.006; UROBILINOGEN,URINE NEGATIVE mg/dL (<2.0)
--- NOTE | 2020-08-10 12:47 | Non Stress Test Report ---
Non Stress Test Datetime Report Generated by CPN: 08/10/2020 12:47 DEMOGRAPHIC EGA NST: 40.3 INDICATION Indication for Study (NST) Other: IUP at 40.3 VITAL SIGNS Temperature - NST: 97.1 Pulse - NST: 91 RESP - NST: 16 NBPSYS NST: 112 NBPDIA NST: 70 MONITORING Monitor Explained: Monitor Explained; Test Explained; Patient Verbalized Understanding Time on Monitor: 08/10/2020 12:00 Time off Monitor: 08/10/2020 12:29 NST Duration: 29 NST INTERVENTIONS NST Interventions: PO Hydration Physician Notified NST: K. Perez, CNM BABY A: [id number] BABY A Movement : Present Contraction Frequency : Irreg FHR Baseline : 130 Accelerations : 15X15 Decelerations : None Variability : Moderate 6-25bpm NST Review: Meets Criteria for Reactive NST NST Review and Verified By : Elaine Weiner NST Results: Reactive NST REPORT Report Trigger: Send Report
[2020-08-10 12:52] LABS: URINE AMPHETAMINES SCREEN NEGATIVE; URINE BARBITURATES SCREEN NEGATIVE; URINE BENZODIAZEPINES SCREEN NEGATIVE; URINE COCAINE SCREEN NEGATIVE; URINE MARIJUANA (THC) SCREEN NEGATIVE; URINE METHADONE SCREEN NEGATIVE; URINE PHENCYCLIDINE SCREEN NEGATIVE
== END 2020-08-10 12:43 | disposition home or self-care (01) ==
LOC: LC 11:45
PROVIDERS: ATTEND Student in an Organized Health Care Education/Training Program
DX: O36.8330 Maternal care for abnormalities of the fetal heart rate or rhythm, third trimester, not applicable or unspecified (principal); O47.1 False labor at or after 37 completed weeks of gestation; Z3A.40 40 weeks gestation of pregnancy
CPT/HCPCS: 59025; 80307; 81005

== ENCOUNTER 2020-08-11 04:48 | Inpatient (IN) | payer MEDICAID ==
[2020-08-11] MEDS ORDERED: RINGERS SOLUTION,LACTATED 1,000 ML IV ONE (05:21)
[2020-08-11] MEDS ORDERED: RINGERS SOLUTION,LACTATED 1,000 ML IV PRN (05:21)
[2020-08-11 05:38] LABS: APPEARANCE,URINE CLEAR; BILIRUBIN,URINE NEGATIVE (NEGATIVE); COLOR,URINE STRAW; GLUCOSE, URINE NEGATIVE (NEGATIVE); KETONES,URINE NEGATIVE (NEGATIVE); LEUKOCYTE ESTERASE,URINE TRACE (NEGATIVE); NITRITE,URINE NEGATIVE (NEGATIVE); PROTEIN,URINE NEGATIVE (NEGATIVE); URINE SPECIFIC GRAVITY 1.004; UROBILINOGEN,URINE NEGATIVE mg/dL (<2.0)
[2020-08-11 05:54] LABS: URINE AMPHETAMINES SCREEN NEGATIVE; URINE BARBITURATES SCREEN NEGATIVE; URINE BENZODIAZEPINES SCREEN NEGATIVE; URINE COCAINE SCREEN NEGATIVE; URINE MARIJUANA (THC) SCREEN NEGATIVE; URINE METHADONE SCREEN NEGATIVE; URINE PHENCYCLIDINE SCREEN NEGATIVE
--- NOTE | 2020-08-11 05:54 | Admission Physical ---
Datetime Report Generated by CPN: 08/11/2020 05:54 CURRENT ADMISSION Chief Complaint: Uterine Contractions; Suspected Ruptured Membranes Chief Complaint Other: + actimprom, 6-7cm Indication for Induction: Not Applicable Admit Impression : Term, Intrauterine ; Active Labor; Ruptured Membranes Admit Plan: Admit to Unit; Initiate Labor Protocol ALLERGIES Medication Allergies: No Medication Allergies: No Known Allergies (08/10/2020) Latex: No Latex Allergies Food Allergies: no Environmental Allergies: no OBSTETRICAL HISTORY EDC: 08/07/2020 00:00 : 3 Para: 1 Term: 1 : 0 SAB: 1 IAB: 0 Ectopic: 0 Livin Cesareans: 0 VBACs: 0 Multiple Births: 0 Gestational Diabetes: No Rh Sensitization: No Incompetent Cervix: No REYNALDO: No Infertility: No ART Treatment: No Uterine Anomaly: No IUGR: No Hx Previous C/S: No Macrosomia: No Hx Loss/Stillborn: No PIH: No Hx : No Placenta Previa/Abruption: No Depression/PP Depression: No PTL/PROM: No Post Hemorrhage: No Current Procedures: Ultrasound Obstetrical History Comments: 03/2018 SAB 01/29/2019 40.3 weeks male g3 - current SEE RECORDS Alcohol: No Marijuana : No Cocaine: No Other Illicit Drugs: No Cigarettes: Never Smoker. 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 Surgery: No Heart Disease: No Hosp/Surgery: Yes Autoimmune Disorder: No Anesthetic Complications: No Kidney Disease: No Abnormal Pap Smear: No Neuro/Epilepsy: No Other Medical Diseases: No Hepatitis/Liver Disease: No Significant Family History: No Varicosities/Phlebitis: No Trauma/Violence : No Thyroid Dysfunction: No INFECTIOUS HISTORY Gonorrhea: No Genital Herpes: No Chlamydia: Yes Tuberculosis: No Syphilis: No Hepatitis: No HIV/AIDS Exposure: No Rash or Viral Illness: No HPV: No PHYSICAL EXAM General: Normal HEENT: Normal Neurologic: Normal Thyroid: Deferred Heart: Normal Lungs: Normal Breast: Deferred Back: Normal Abdomen: Normal Genitourinary Exam: Normal Extremities: Normal DTRs: Normal Pelvic Type: Adequate Vital Signs: Reviewed VAGINAL EXAM Dilatation: 6 Effacement: 100 Station: -1 Contraction Comments: q 3 MEMBRANES Membranes: Ruptured Amniotic Fluid Color: Clear FETUS A EGA: 40.4 Monitoring: External US FHR- Baseline: 145 Variability: Moderate 6-25bpm Accelerations: 15X15 Decelerations: None FHR Category: Category I Presentation: Vertex Admit Comment: 20yo at 40+4ega presents for SROM with clear fluid at 0300. She also is having contractions. Cvx 6cm and Actimprom positive. GBS negative. Pelvis proven to 7#2oz. Transfer from [facility] at 24wks. Admit to labor and delivery. Anticipate . PLANS FOR LABOR AND DELIVERY Labor and Delivery: None Pain Management: Epidural Feeding Preference: Breast Benefit of Breast Feed Discussed: Yes Circumcision: N/A INFORMED CONSENT Informed Consent Obtained: Vaginal Delivery; Risks, Benefits and Alternatives Discussed Signature: with User ID: [email or web address]
[2020-08-11] MEDS ORDERED: EPHEDRINE SULFATE INJ 50 MG/1 ML AMPULE ONE (05:57)
[2020-08-11] MEDS ORDERED: ROPIVACAINE HCL 0.2% INJ/PF (2 MG/ML) 20 ML SDV ONE (05:58)
[2020-08-11] MEDS ORDERED: FENTANYL/BUPIVACAINE/NS/PF 0 MCG/0 ML RTUINJ EPI ONE (05:58)
[2020-08-11 06:33] LABS: ABSOLUTE BASOPHILS # (AUTO) 0.1 10^3/uL (0.0-0.2); ABSOLUTE LYMPHOCYTES (AUTO) 1.3 10^3/uL (0.5-4.7); ABSOLUTE MONOCYTES (AUTO) 0.5 10^3/uL (0.1-1.4); BASOPHILS % (AUTO) 0.5 % (0-2); EOSINOPHILS % (AUTO) 0.2 % (0-6); HEMATOCRIT 37.5 % (36.0-47.0); HEMOGLOBIN 12.9 g/dL (12.0-15.5); LYMPHOCYTES % (AUTO) 13.2 % (13-45); MEAN CORPUSCULAR HEMOGLOBIN 33.2 pg (27.0-33.4); MEAN CORPUSCULAR HGB CONC 34.4 g/dL (32.0-36.0); MEAN CORPUSCULAR VOLUME 96 fl (80-97); MONOCYTES % (AUTO) 5.1 % (3-13); PLATELET COUNT 117 10^3/uL (150-450); RED CELL DISTRIBUTION WIDTH 14.5 % (11.5-14.0); TOTAL CELLS COUNTED % (AUTO) 100 %; WHITE BLOOD COUNT 9.9 10^3/uL (4.0-10.5)
[2020-08-11] MEDS ORDERED: OXYTOCIN/0.9 % SODIUM CHLORIDE 30 UNIT/500 ML RTUINJ ONE (06:44)
[2020-08-11] MEDS ORDERED: OXYTOCIN 10 UNIT/ML VIAL ONE (06:44)
[2020-08-11] MEDS ORDERED: MISOPROSTOL 0.2 MG TABLET ONE (06:44)
[2020-08-11] MEDS ORDERED: LIDOCAINE 1% INJ-PF (10 MG/ML) 30 ML SDV ONE (06:44)
[2020-08-11] MEDS ORDERED: ZOLPIDEM TARTRATE 5 MG TABLET PO PRN (07:55)
[2020-08-11] MEDS ORDERED: DIPHENHYDRAMINE HCL 25 MG CAPSULE PO PRN (07:55)
[2020-08-11] MEDS ORDERED: DIPH/PERTUSS(ACELL)/TETANUS VAC/PF 0.5 ML SYR (>=10YO) IM PRN (07:55)
[2020-08-11] MEDS ORDERED: NA PHOS,M-B/NA PHOS,DI-BA (ADULT) 133 ML ENEMA PR PRN (07:55)
[2020-08-11] MEDS ORDERED: OXYTOCIN/0.9 % SODIUM CHLORIDE 30 UNIT/500 ML RTUINJ IV PRN (07:55)
[2020-08-11] MEDS ORDERED: ACETAMINOPHEN 325 MG TABLET PO PRN (07:55)
[2020-08-11] MEDS ORDERED: MEASLES,MUMPS&RUBELLA VACC/PF 0.5 ML VIAL SUBCUT PRN (07:55)
[2020-08-11] MEDS ORDERED: BENZOCAINE/MENTHOL AEROSOL SPRAY 56 ML TOP PRN (07:55)
[2020-08-11] MEDS ORDERED: ACETAMINOPHEN WITH CODEINE #3 TABLET PO PRN ×2 (07:55)
[2020-08-11] MEDS ORDERED: PROMETHAZINE HCL INJ 25 MG/1 ML VIAL IV PRN (07:55)
[2020-08-11] MEDS ORDERED: MAGNESIUM HYDROXIDE SUSP 30 ML UDCUP PO PRN (07:55)
[2020-08-11] MEDS ORDERED: PROMETHAZINE HCL 25 MG SUPP.RECT PR PRN (07:55)
[2020-08-11] MEDS ORDERED: PSEUDOEPHEDRINE HCL 30 MG TABLET PO PRN (07:55)
[2020-08-11] MEDS ORDERED: PROMETHAZINE HCL 25 MG TABLET PO PRN (07:55)
[2020-08-11] MEDS ORDERED: DIBUCAINE 1% OINTMENT 28 GM TP PRN (07:55)
[2020-08-11] MEDS ORDERED: GLYCERIN/WITCH HAZEL LEAF 1 EACH MED..WIPE TP PRN (07:55)
[2020-08-11] MEDS ORDERED: IBUPROFEN 800 MG TABLET ONE (08:00)
[2020-08-11] MEDS: DOCUSATE SODIUM 100 MG CAPSULE PO SCH ×2 (11:48→18:05)
[2020-08-11] MEDS: FERROUS SULFATE 325 MG TABLET PO SCH ×2 (11:48→18:05)
[2020-08-11] MEDS: SENNOSIDES/DOCUSATE 8.6-50 MG 1 EACH TABLET PO SCH (11:50)
[2020-08-11] MEDS: PRENATAL VITAMIN W DHA CAPSULE PO SCH (11:50)
[2020-08-11] MEDS: FAMOTIDINE 20 MG TABLET PO SCH ×2 (11:50→21:46)
[2020-08-11] MEDS: IBUPROFEN 800 MG TABLET PO SCH ×2 (14:00→21:46)
[2020-08-12] MEDS: IBUPROFEN 800 MG TABLET PO SCH ×3 (05:56→21:24)
[2020-08-12 06:52] LABS: HEMATOCRIT 35.4 % (36.0-47.0); HEMOGLOBIN 12.2 g/dL (12.0-15.5); MEAN CORPUSCULAR HEMOGLOBIN 33.6 pg (27.0-33.4); MEAN CORPUSCULAR HGB CONC 34.6 g/dL (32.0-36.0); MEAN CORPUSCULAR VOLUME 97 fl (80-97); PLATELET COUNT 119 10^3/uL (150-450); RED BLOOD COUNT 3.64 10^6/uL (3.72-5.28); RED CELL DISTRIBUTION WIDTH 14.5 % (11.5-14.0); WHITE BLOOD COUNT 9.7 10^3/uL (4.0-10.5)
[2020-08-12] MEDS: PRENATAL VITAMIN W DHA CAPSULE PO SCH (10:31)
[2020-08-12] MEDS: DOCUSATE SODIUM 100 MG CAPSULE PO SCH ×2 (10:31→17:21)
[2020-08-12] MEDS: SENNOSIDES/DOCUSATE 8.6-50 MG 1 EACH TABLET PO SCH (10:31)
[2020-08-12] MEDS: FAMOTIDINE 20 MG TABLET PO SCH ×2 (10:32→21:24)
[2020-08-12] MEDS: FERROUS SULFATE 325 MG TABLET PO SCH ×2 (10:32→17:21)
--- NOTE | 2020-08-12 14:29 | PDOC PROGRESS REPORT ---
Subjective-OB Progress Note for:: 08/12/20 Subjective: Pt doing well, no complaints. She is resting, bleeding is stable. Voiding w/o difficulty, reports reg diet and + flatus. Physical Exam (OB) Vital Signs: Temp Pulse Resp BP Pulse Ox 97.5 F 63 16 91/61 L 97 08/12/20 10:00 08/12/20 07:30 08/12/20 07:30 08/12/20 07:30 08/12/20 07:30 Intake & Output 08/11/20 08/12/20 08/13/20 06:59 06:59 06:59 Intake Total 1640 Balance 1640 Weight 125.5 kg - PIH/Pre-Eclampsia Clonus: Negative Headache: Absent Epigastric Pain: No Visual Changes: No - Maternal Morbidity 59. Maternal Morbidity (serious complications experinced by the mother associated with labor and delivery: None of the above - Lochia Lochia Amount: Small 10-25 ml Lochia Color: Rubra/Red - Abdomen Description: Soft Hernia Present: No Fundal Description: Firm, Midline Fundal Height: u/u - u/2 Objective-Diagnostic Laboratory: 08/12/20 06:19 08/12/20 06:19 WBC 9.7 RBC 3.64 L Hgb 12.2 Hct 35.4 L MCV 97 MCH 33.6 H MCHC 34.6 RDW 14.5 H Plt Count 119 L Assessment and Plan(PN) - Assessment and Plan (1) Active labor at term Is this a current diagnosis for this admission?: Yes (2) Gestational thrombocytopenia Qualifiers: Trimester: third trimester Qualified Code(s): O99.113 - Other diseases of the blood and blood-forming organs and certain disorders involving the immune mechanism complicating , third trimester; D69.6 - Thrombocytopenia, unspecified Is this a current diagnosis for this admission?: Yes (3) Obstetrical laceration, first degree Is this a current diagnosis for this admission?: Yes (4) Spontaneous rupture of amniotic membranes Is this a current diagnosis for this admission?: Yes (5) Vaginal delivery Is this a current diagnosis for this admission?: Yes - Time Spent with Patient Time with patient: Less than 15 minutes Medications reviewed and adjusted accordingly: Yes - Disposition Anticipated Discharge Disposition: Home, Self Care Anticipated Discharge Timeframe: within 24 hours
[2020-08-13] MEDS: IBUPROFEN 800 MG TABLET PO SCH (05:12)
[2020-08-13 08:15] VITALS: BP 110/69
[2020-08-13] MEDS: FERROUS SULFATE 325 MG TABLET PO SCH (09:42)
[2020-08-13] MEDS: DOCUSATE SODIUM 100 MG CAPSULE PO SCH (09:42)
[2020-08-13] MEDS: SENNOSIDES/DOCUSATE 8.6-50 MG 1 EACH TABLET PO SCH (09:42)
[2020-08-13] MEDS: FAMOTIDINE 20 MG TABLET PO SCH (09:42)
[2020-08-13] MEDS: PRENATAL VITAMIN W DHA CAPSULE PO SCH (09:42)
--- NOTE | 2020-08-13 12:25 | PDOC DISCHARGE SUMMARY ---
Impression - Admit/DC Date/PCP Admission Date/Primary Care Provider: 08/11/20 05:20 JENNIFER THORNTON MD Discharge Date: 08/13/20 - Discharge Diagnosis (1) Active labor at term Is this a current diagnosis for this admission?: Yes (2) Gestational thrombocytopenia Is this a current diagnosis for this admission?: Yes (3) Obstetrical laceration, first degree Is this a current diagnosis for this admission?: Yes (4) Spontaneous rupture of amniotic membranes Is this a current diagnosis for this admission?: Yes (5) Vaginal delivery Is this a current diagnosis for this admission?: Yes - Additional Information Resuscitation Status: Full Code Discharge Diet: Regular Discharge Activity: Balance Activity w/Rest, Pelvic Rest Referrals: JENNIFER THORNTON MD [Primary Care Provider] - Prescriptions: Ibuprofen [Motrin 800 mg Tablet] 800 mg PO Q8HP PRN #60 tablet PRN Reason: Home Medications: Pnv No.95/Ferrous Fum/Folic AC [ Vitamin Tablet] 1 tab PO DAILY 07/14/18 Ibuprofen [Motrin 800 mg Tablet] 800 mg PO Q8HP PRN #60 tablet 08/13/20 HPI Gestational Age: 40.4 Reason(s) for Admission: Onset of Labor, PROM Procedures: NST Intrapartum Procedure(s): Spontaneous Vaginal Delivery Complication(s): Laceration-Perineal Laceration-Degree: 1st Hospital Course 59. Maternal Morbidity (serious complications experinced by the mother associated with labor and delivery: None of the above Results Laboratory Results: WBC 9.7 10^3/uL (4.0-10.5) 08/12/20 06:19 RBC 3.64 10^6/uL (3.72-5.28) L 08/12/20 06:19 Hgb 12.2 g/dL (12.0-15.5) 08/12/20 06:19 Hct 35.4 % (36.0-47.0) L 08/12/20 06:19 MCV 97 fl (80-97) 08/12/20 06:19 MCH 33.6 pg (27.0-33.4) H 08/12/20 06:19 MCHC 34.6 g/dL (32.0-36.0) 08/12/20 06:19 RDW 14.5 % (11.5-14.0) H 08/12/20 06:19 Plt Count 119 10^3/uL (150-450) L 08/12/20 06:19 Lymph % (Auto) 13.2 % (13-45) 08/11/20 06:21 [place] % (Auto) 5.1 % (3-13) 08/11/20 06:21 Eos % (Auto) 0.2 % (0-6) 08/11/20 06:21 Baso % (Auto) 0.5 % (0-2) 08/11/20 06:21 Absolute Neuts (auto) 8.0 10^3/uL (1.7-8.2) 08/11/20 06:21 Absolute Lymphs (auto) 1.3 10^3/uL (0.5-4.7) 08/11/20 06:21 Absolute Monos (auto) 0.5 10^3/uL (0.1-1.4) 08/11/20 06:21 Absolute Eos (auto) 0.0 10^3/uL (0.0-0.6) 08/11/20 06:21 Absolute Basos (auto) 0.1 10^3/uL (0.0-0.2) 08/11/20 06:21 Seg Neutrophils % 81.0 % (42-78) H 08/11/20 06:21 Urine Color STRAW 08/11/20 04:55 Urine Appearance CLEAR 08/11/20 04:55 Urine pH 7.0 (5.0-9.0) 08/11/20 04:55 Ur Specific [place] 1.004 08/11/20 04:55 Urine Protein NEGATIVE mg/dL (NEGATIVE) 08/11/20 04:55 Urine Glucose (UA) NEGATIVE mg/dL (NEGATIVE) 08/11/20 04:55 Urine Ketones NEGATIVE mg/dL (NEGATIVE) 08/11/20 04:55 Urine Blood LARGE (NEGATIVE) H 08/11/20 04:55 Urine Nitrite NEGATIVE (NEGATIVE) 08/11/20 04:55 Urine Bilirubin NEGATIVE (NEGATIVE) 08/11/20 04:55 Urine Urobilinogen NEGATIVE mg/dL (<2.0) 08/11/20 04:55 Ur Leukocyte Esterase TRACE (NEGATIVE) H 08/11/20 04:55 Urine Ascorbic Acid NEGATIVE (NEGATIVE) 08/11/20 04:55 Membranes Rupture POSITIVE (NEGATIVE) H 08/11/20 04:55 Urine Opiates Screen NEGATIVE 08/11/20 04:55 Urine Methadone Screen NEGATIVE 08/11/20 04:55 Ur Barbiturates Screen NEGATIVE 08/11/20 04:55 Ur Phencyclidine Scrn NEGATIVE 08/11/20 04:55 Ur Amphetamines Screen NEGATIVE 08/11/20 04:55 U Benzodiazepines Scrn NEGATIVE 08/11/20 04:55 Urine Cocaine Screen NEGATIVE 08/11/20 04:55 U Marijuana (THC) Screen NEGATIVE 08/11/20 04:55 RPR NONREACTIVE (NONREACTIVE) 08/11/20 06:21 Blood Type A POSITIVE 08/11/20 06:21 Antibody Screen NEGATIVE 08/11/20 06:21 Plan Plan of Treatment: f/u at [facility] 4 wks Time Spent: Less than 30 Minutes
--- NOTE | 2020-08-14 13:21 | Delivery Summary ---
Del Sum A-C Datetime Report Generated by CPN: 08/14/2020 13:20 DELIVERY PERSONNEL DELIVERY PERSONNEL: [id number] Delivery Doctor:: Nichol Timmons MD Labor and Delivery Nurse:: Priscila Arzola RNC Labor and Delivery Nurse:: Sanna Licea, RN MATERNAL INFORMATION Delivery Anesthesia: None Medications After Delivery: Pitocin 30 Units in 500ml NS/D5W Estimated Blood Loss (ml): 50 Delivery QBL: 50 Maternal Complications: Precipitous Labor (<3hrs) Provider Comments: VFI delivered in JEIMY presentation. No nuchal cord. Shoulders and body delivered without difficulty. Cord doubly clamped and cut. Infant to maternal abdomen for NRP. Placenta delivered intact spontaneously. FF at U. 1st degree perineal laceration repaired with good hemostasis and 2 abraisions repaired for hemostasis. MOther and baby stable upon provider leaving the room. LABOR SUMMARY EDC: 08/07/2020 00:00 No. Babies in Womb: 1 Attempted: No Labor Anesthesia: None LABOR INFORMATION Reason for Induction: Not Applicable Onset of Labor: 08/11/2020 03:00 Complete Dilatation: 08/11/2020 06:35 Oxytocin: N/A Group B Beta Strep: Negative Antibiotics # of Doses: 0 Steroids Given: None Reason Steroids Not Administered: Not Applicable MEMBRANES Membranes Rupture Method: Spontaneous Rupture of Membranes: 08/11/2020 03:00 Length of Rupture (hr): 3.70 Amniotic Fluid Color: Clear Amniotic Fluid Amount: Scant Amniotic Fluid Odor: None STAGES OF LABOR Stage 1 hr: 3 Stage 1 min: 35 Stage 2 hr: 0 Stage 2 min: 7 Stage 3 hr: 0 Stage 3 min: 5 Total Time in Labor hr: 3 Total Time in Labor min: 47 VAGINAL DELIVERY Episiotomy: None Laceration #1: None Laceration Extension #1: First Degree Other Laceration: vaginal Laceration Repair: Yes Laceration Repair Note: small 1st degree perineal laceration, surrounding abraisions repaired. Sponge Count Correct: Yes Sharps Count Correct: Yes CSECTION DELIVERY Primary Indication: N/A Secondary Indication: N/A CSection Incision: N/A BABY A INFORMATION Infant Delivery Date/Time: 08/11/2020 06:42 Method of Delivery: Vaginal Method of Delivery: Vaginal Nurse Controlled Delivery: No Born in Route : No : N/A Forceps: N/A Vacuum Extraction: N/A Shoulder Dystocia : No PRESENTATION/POSITION BABY A Presentation: Cephalic Cephalic Presentation: Vertex Vertex Position: Left Occipital Anterior Breech Presentation: N/A PLACENTA INFORMATION BABY A Placenta Delivery Time : 08/11/2020 06:47 Placenta Method of Delivery: Spontaneous Placenta Status: Delivered SCORES BABY A Heart Rate 1 min: >100 bpm Resp Effort 1 min: Good Cry Reflex Irritability 1 min: Cough or Sneeze or Pulls Away Muscle Tone 1 min: Active Motion Color 1 min: Blue/Pale SCORE 1 MIN: 8 Heart Rate 5 min: >100 bpm Resp Effort 5 min: Good Cry Reflex Irritability 5 min: Cough or Sneeze or Pulls Away Muscle Tone 5 min: Active Motion Color 5 min: Body [place], Extremities Blue SCORE 5 MIN: 9 INFORMATION BABY A Gestational Age at Delivery: 40.4 Gestational Status: Full Term- 39- 40.6 Weeks Outcome : Liveborn Infant Condition : Stable Sex: Female Infant Sex: Female IDENTIFICATION BABY A Verification Date/Time: 08/11/2020 08:20 ID Band Number: [id number] Mother's Name Verified: Yes RN Verifying Infant: Esther Castrejon RN Additional Verifying Personnel: Guille [employer] STABIL[employer]ER WEIGHT/LENGTH BABY A Birthweight (gm): 3140 Weight (lb): 6 Infant Weight (oz): 15 Length (in): 20.00 Infant Length (cm): 50.80 CORD INFORMATION BABY A No. 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
== END 2020-08-13 14:26 | disposition home or self-care (01) | DRG 806 ==
LOC: LC 04:48 → LR 05:20 → 2S 12:00
PROVIDERS: ADMIT Student in an Organized Health Care Education/Training Program; ATTEND Student in an Organized Health Care Education/Training Program
PROC: 10E0XZZ Delivery of Products of Conception, External Approach (ICD-10-PCS; principal; 2020-08-11)
PROC: 0HQ9XZZ Repair Perineum Skin, External Approach (ICD-10-PCS; 2020-08-11)
DX: O62.3 Precipitate labor (principal); O99.12 Other diseases of the blood and blood-forming organs and certain disorders involving the immune mechanism complicating childbirth; Z37.0 Single live birth; O70.0 First degree perineal laceration during delivery; Z3A.40 40 weeks gestation of pregnancy; D69.6 Thrombocytopenia, unspecified
CPT/HCPCS: 36415; 80307; 81005; 84112; 85025; 85027; 86592; 86850; 86900; 86901; J2590; J2795; J3010; J3490

== ENCOUNTER → 2020-09-17 | Outpatient (CLI) | payer MEDICAID ==
--- NOTE | 2020-09-17 13:06 | WOMENS IMAGING REPORT ---
EXAM DESCRIPTION: U/S BREAST UNILATERAL, COMPL IMAGES COMPLETED DATE/TIME: 09/17/2020 10:03 am REASON FOR STUDY: N64.4 N64.4 MASTODYNIA COMPARISON: None. TECHNIQUE: Real-time and static grayscale imaging performed of the left breast targeted to the area of clinical/mammographic concern. Selected color Doppler images recorded. LIMITATIONS: None. FINDINGS: MASS: The left breast was scanned the 12 to 12 o'clock axes including the nipple, areola, and subareolar regions of the breast. No mass identified. Normal glandular tissue. OTHER: A well-circumscribed 7.4 x 3.4 x 8.3 mm lymph node with a hilus of fat probably on a benign r eactive basis. The patient is currently . IMPRESSION: No suspicious findings detected by ultrasound. BIRAD: 2 Benign findings. RECOMMENDATION: 1. RECOMMENDED FOLLOW-UP: Follow-up as clinically indicated. COMMENT: The [employer] (A[employer]) has developed recommendations for screening MRI of the breasts in certain patient populations, to be used in conjunction with mammography. Breast MRI s urveillance may be appropriate for women with more than 20% lifetime risk of developing breast cancer as determined by genetic testing, significant family history of the disease, or history of mantle r adiation for Hodgkins Disease. ACR Practice Guidelines 2008. TECHNICAL DOCUMENTATION: JOB ID: [id number] 2010 [employer]- All Rights Reserved Reading location - IP/workstation name: [id number]
== END ==
LOC: WI 09:30
PROVIDERS: ATTEND Specialist
DX: N64.4 Mastodynia (principal)
CPT/HCPCS: 76641